=== PATIENT | male | born 1960 | race Caucasian/White ===

== ENCOUNTER 2016-07-09 12:32 | Emergency (ER) | payer OTHER ==
[~2016-07-09] VITALS: Ht 177.8 cm; Wt 147.4 kg
[~2016-07-09 12:32] MED LIST: 'PARAFON FORTE500 M1 PO; ? ANTIDEPRESSANT; ARICEPT10 M1 PO; ATENOLOL25 MG PO; BRIN10TA PO; CATAFLAM50 MG PO; COPAXONE40 MG/ML SC; CORTISPORIN SUS10 ML OT; CYMBALTA30 MG PO; FLEXERIL10 MG PO; FLOMAX0.4 MG PO; HYDROCODONE BIT1 T11 PO; LODINE400 MG PO; LOVASTATIN10 MG PO; LYRICA50 M1 PO; MEDROL DOSEPAK4 MG PO; NAPROSYN500 MG PO; NEURONTIN300 MG PO; NORCO 5-325 TA1 EACH PO; PREDNISONE10 MG PO; PREDNISONE20 MG PO; PRILOSEC20 MG PO; RAPAFLO4 MG; REGLAN5 MG PO; TAMSULOSIN HCL0.4 MG PO; TENORMIN25 MG; TESTOSTERO200 MG/10 IM; TESTOSTERONE1 POW; TRAMADOL HCL50 MG PO; TRAMADOL50 MG PO; TRINTELLIX20 MG PO; VIIBRYD40 PO; VIT D2 PO; VITAMIN E1000 UNI1 PO; ZOFRAN4 MG PO; ZYRTEC10 M2 PO; [UNRECOGNIZED DRUG - OTHER] PO
[2016-07-09] MEDS ORDERED: LOVASTATIN40 MG PO (12:47)
[2016-07-09] MEDS ORDERED: VITAMIN E-SYNT400 IU PO (12:49)
[2016-07-09] MEDS ORDERED: OMEPRAZOLE40 MG PO (12:49)
[2016-07-09] MEDS ORDERED: NATURE'S BLEN5000 IU PO (12:50)
[2016-07-09 13:24] LABS: BASO % 0.3 % (0.0-1.0); EOS % 0.5 % (1.0-4.0); HEMATOCRIT 46.1 % (42.0-52.0); HEMOGLOBIN 15.9 g/dl (14.0-18.0); LYMPH # 1.1 10*3/uL (1.3-4.4); LYMPH % 16.8 % (27.0-41.0); MEAN CELL VOLUME 90.9 fl (80.0-94.0); MEAN CORPUSCULAR HGB 31.4 pg (27.0-31.0); MEAN CORPUSCULAR HGB CONC 34.5 g/dl (33.0-37.0); MEAN PLATELET VOLUME 10.8 fl (9.6-12.3); MONO # 0.5 10*3/uL (0.1-1.0); MONO % 8.1 % (3.0-9.0); NEUT # 4.7 10*3/uL (2.3-7.9); PLATELET COUNT AUTOMATED 157 10*3/uL (130-400); RED BLOOD COUNT 5.07 10*6/uL (4.50-5.90); RED CELL DISTRI WIDTH 12.7 % (0-14.5); WHITE BLOOD COUNT 6.3 10*3/uL (4.8-10.8)
[2016-07-09 13:37] LABS: BUN 15 mg/dl (7-24); CARBON DIOXIDE 25 mmol/L (21-32); CHLORIDE 108 mmol/L (98-107); EST GLOM FILT AFRICAN AMERICAN > 60 ml/min; GLUCOSE 114 mg/dL (65-99); POTASSIUM 4.1 mmol/L (3.5-5.1); SODIUM 142 mmol/L (136-145)
[2016-07-09] MEDS ORDERED: VERTICALM25 MG PO (16:11)
== END 2016-07-09 16:20 | disposition home or self-care (01) ==
LOC: ED 12:32
PROVIDERS: Emergency Medicine
DX: R42 Dizziness and giddiness (principal); Z90.49 Acquired absence of other specified parts of digestive tract; Z88.8 Allergy status to other drugs, medicaments and biological substances; Z79.899 Other long term (current) drug therapy

== ENCOUNTER → 2016-07-30 | Outpatient (CLI) | payer OTHER ==
[~2016-07-30] MED LIST changes: +LOVASTATIN40 MG PO; +NATURE'S BLEN5000 IU PO; +OMEPRAZOLE40 MG PO; +VERTICALM25 MG PO; +VITAMIN E-SYNT400 IU PO
[2016-07-30 08:27] LABS: HEMATOCRIT 43.8 % (42.0-52.0); HEMOGLOBIN 15.1 g/dl (14.0-18.0); MEAN CELL VOLUME 90.5 fl (80.0-94.0); MEAN CORPUSCULAR HGB 31.2 pg (27.0-31.0); MEAN CORPUSCULAR HGB CONC 34.5 g/dl (33.0-37.0); MEAN PLATELET VOLUME 10.7 fl (9.6-12.3); RED BLOOD COUNT 4.84 10*6/uL (4.50-5.90); RED CELL DISTRI WIDTH 12.5 % (0-14.5); WHITE BLOOD COUNT 6.8 10*3/uL (4.8-10.8)
[2016-07-30 08:56] LABS: ALBUMIN 3.5 gm/dl (3.1-4.5); ALKALINE PHOSPHATASE 78 U/L (45-117); BILIRUBIN, TOTAL 0.5 mg/dl (0.2-1.0); BUN 5 mg/dl (7-24); CARBON DIOXIDE 22 mmol/L (21-32); CHLORIDE 106 mmol/L (98-107); CHOLESTEROL 166 mg/dL (<200); EST GLOM FILT AFRICAN AMERICAN > 60 ml/min; GLUCOSE 137 mg/dL (65-99); HDL CHOLESTEROL 51 mg/dl (40-60); LDL CHOLESTEROL 97 mg/dL (9-159); POTASSIUM 3.4 mmol/L (3.5-5.1); SGOT/AST 26 IU/L (3-35); SGPT/ALT 31 U/L (12-78); SODIUM 141 mmol/L (136-145); TOTAL PROTEIN 6.8 gm/dL (6.4-8.2); TRIGLYCERIDES 92 mg/dl (<150); VLDL CHOLESTEROL 18 mg/dL (6-40)
== END | disposition home or self-care (01) ==
LOC: LAB 08:02
PROVIDERS: Internal Medicine Endocrinology, Diabetes & Metabolism
DX: E29.1 Testicular hypofunction (principal); R53.83 Other fatigue

== ENCOUNTER → 2016-11-11 | Outpatient (CLI) | payer OTHER ==
[2016-11-11 08:05] LABS: HEMATOCRIT 46.2 % (42.0-52.0); HEMOGLOBIN 15.4 g/dl (14.0-18.0); MEAN CELL VOLUME 94.9 fl (80.0-94.0); MEAN CORPUSCULAR HGB 31.6 pg (27.0-31.0); MEAN CORPUSCULAR HGB CONC 33.3 g/dl (33.0-37.0); MEAN PLATELET VOLUME 11.2 fl (9.6-12.3); RED BLOOD COUNT 4.87 10*6/uL (4.50-5.90); WHITE BLOOD COUNT 6.3 10*3/uL (4.8-10.8)
[2016-11-11 08:31] LABS: ALBUMIN 3.6 gm/dl (3.1-4.5); ALKALINE PHOSPHATASE 86 U/L (45-117); BILIRUBIN, TOTAL 0.3 mg/dl (0.2-1.0); BUN 15 mg/dl (7-24); CARBON DIOXIDE 29 mmol/L (21-32); CHLORIDE 106 mmol/L (98-107); CHOLESTEROL 188 mg/dL (<200); EST GLOM FILT AFRICAN AMERICAN > 60 ml/min; GLUCOSE 100 mg/dL (65-99); HDL CHOLESTEROL 53 mg/dl (40-60); LDL CHOLESTEROL 104 mg/dL (9-159); POTASSIUM 4.5 mmol/L (3.5-5.1); SGOT/AST 22 IU/L (3-35); SGPT/ALT 23 U/L (12-78); SODIUM 144 mmol/L (136-145); TRIGLYCERIDES 154 mg/dl (<150); VLDL CHOLESTEROL 31 mg/dL (6-40)
== END | disposition home or self-care (01) ==
LOC: LAB 07:36
PROVIDERS: Internal Medicine Endocrinology, Diabetes & Metabolism
DX: R53.83 Other fatigue (principal); E29.1 Testicular hypofunction

== ENCOUNTER 2017-01-05 20:20 | Emergency (ER) | payer OTHER ==
[~2017-01-05] VITALS: Ht 177.8 cm; Wt 135.6 kg
[2017-01-05 20:46] LABS: HEMATOCRIT 46.5 % (42.0-52.0); HEMOGLOBIN 15.6 g/dl (14.0-18.0); MEAN CELL VOLUME 93.4 fl (80.0-94.0); MEAN CORPUSCULAR HGB 31.3 pg (27.0-31.0); MEAN CORPUSCULAR HGB CONC 33.5 g/dl (33.0-37.0); MEAN PLATELET VOLUME 10.7 fl (9.6-12.3); PLATELET COUNT AUTOMATED 151 10*3/uL (130-400); RED BLOOD COUNT 4.98 10*6/uL (4.50-5.90); RED CELL DISTRI WIDTH 12.8 % (0-14.5); WHITE BLOOD COUNT 7.9 10*3/uL (4.8-10.8)
[2017-01-05 20:58] LABS: PROTHROMBIN TIME 10.2 SECONDS (9.0-12.4)
[2017-01-05 21:03] LABS: ALBUMIN 3.9 gm/dl (3.1-4.5); ALKALINE PHOSPHATASE 84 U/L (45-117); BILIRUBIN, TOTAL 0.5 mg/dl (0.2-1.0); BUN 15 mg/dl (7-24); CARBON DIOXIDE 27 mmol/L (21-32); CHLORIDE 106 mmol/L (98-107); EST GLOM FILT AFRICAN AMERICAN > 60 ml/min; GLUCOSE 100 mg/dL (65-99); MAGNESIUM 1.8 mg/dL (1.5-2.1); POTASSIUM 3.9 mmol/L (3.5-5.1); SGOT/AST 20 IU/L (3-35); SGPT/ALT 26 U/L (12-78); SODIUM 143 mmol/L (136-145); TOTAL PROTEIN 7.2 gm/dL (6.4-8.2)
[2017-01-05 21:05] LABS: TROPONIN I < 0.015 ng/ml (<0.045)
[2017-01-05 21:08] LABS: LYMPHOCYTE # 0.9 10*3/uL (1.3-4.4); MONOCYTE # 0.1 10*3/uL (0.1-1.0); NEUTROPHILS 88 % (47-73); PLATELET SUFFICIENCY NORMAL (NORMAL); TOTAL CELLS COUNTED 100 #CELLS
== END 2017-01-05 22:16 | disposition home or self-care (01) ==
LOC: ED 20:20
PROVIDERS: Emergency Medicine
DX: R07.89 Other chest pain (principal); Z90.49 Acquired absence of other specified parts of digestive tract; Z88.8 Allergy status to other drugs, medicaments and biological substances; Z79.899 Other long term (current) drug therapy; G35 Multiple sclerosis

== ENCOUNTER → 2017-04-16 | Outpatient (CLI) | payer OTHER | END | disposition home or self-care (01) | LOC: LAB 12:39 | PROVIDERS: Psychiatry & Neurology Psychiatry | DX: R53.83 Other fatigue (principal); R42 Dizziness and giddiness; R41.81 Age-related cognitive decline; M25.50 Pain in unspecified joint ==

== ENCOUNTER 2017-07-25 12:04 | Emergency (ER) | payer OTHER ==
[~2017-07-25] VITALS: Ht 177.8 cm; Wt 149.7 kg
[2017-07-25 12:56] LABS: BUN 10 mg/dl (7-24); CHLORIDE 105 mmol/L (98-107); CREATININE 0.91 mg/dL (0.70-1.30); POTASSIUM 3.8 mmol/L (3.5-5.1); SODIUM 138 mmol/L (136-145)
== END 2017-07-25 13:08 | disposition home or self-care (01) ==
LOC: ED 12:04
PROVIDERS: Emergency Medicine
DX: G89.4 Chronic pain syndrome (principal); G35 Multiple sclerosis; Z98.890 Other specified postprocedural states; Z79.899 Other long term (current) drug therapy; Z88.8 Allergy status to other drugs, medicaments and biological substances; Z88.6 Allergy status to analgesic agent

== ENCOUNTER → 2017-10-12 | Outpatient (CLI) | payer OTHER ==
--- NOTE | ~2017-10-12 | ST ---
[place], [place] EXERCISE STRESS TEST REPORT NAME: [facility]CCORD [id number] UNIT #: [id number] ROOM: DOCTOR: MIKE CANTU MD BIRTHDATE: [birth year] DOS: 10/12/2017 INDICATIONS: Abnormal electrocardiogram. PROCEDURE: The patient was given a rapid infusion of regadenoson 0.4 mg followed by a saline flush. He had no significant symptoms during the infusion. His heart rate increased normally from 66 to a peak of 113 beats per minute. The blood pressure fell from 126/72-104/70. No diagnostic electrocardiographic changes occurred. Forty seconds after the infusion of regadenoson, he was given radionuclide intravenously. IMPRESSION: 1. Well tolerated infusion of regadenoson. 2. Radionuclide administered. Please see the separate imaging report for further details of the patient's stress test results. MIKE CANTU MD CM:STRESS:EXERCISE STRESS TEST REPORT [id number] MIKE CANTU MD
== END | disposition home or self-care (01) ==
LOC: CARD 01:26
DX: I10 Essential (primary) hypertension (principal); R07.89 Other chest pain; R94.31 Abnormal electrocardiogram [ECG] [EKG]; E78.5 Hyperlipidemia, unspecified; R53.81 Other malaise

== ENCOUNTER → 2017-10-14 | Outpatient (CLI) | payer OTHER ==
[~2017-10-14] MED LIST changes: +FLEET MINERAL133 ML PO; +MIRALAX POWDER255 G1 PO
== END | disposition home or self-care (01) ==
LOC: CARD 00:15
DX: I51.7 Cardiomegaly (principal); R06.02 Shortness of breath; I10 Essential (primary) hypertension

== ENCOUNTER → 2017-10-20 | Outpatient (CLI) | payer OTHER ==
[~2017-10-20] MED LIST changes: -FLEET MINERAL133 ML PO; -MIRALAX POWDER255 G1 PO
== END | disposition home or self-care (01) ==
LOC: RAD 15:49
DX: M76.892 Other specified enthesopathies of left lower limb, excluding foot (principal)

== ENCOUNTER 2017-10-30 21:37 | Emergency (ER) | payer OTHER ==
[~2017-10-30] VITALS: Ht 177.8 cm; Wt 136.1 kg
[2017-10-30 22:58] LABS: BASO % 0.3 % (0.0-1.0); EOS % 0.2 % (1.0-4.0); HEMATOCRIT 43.4 % (42.0-52.0); HEMOGLOBIN 14.7 g/dl (14.0-18.0); LYMPH # 1.4 10*3/uL (1.3-4.4); LYMPH % 13.6 % (27.0-41.0); MEAN CELL VOLUME 93.1 fl (80.0-94.0); MEAN CORPUSCULAR HGB 31.5 pg (27.0-31.0); MEAN CORPUSCULAR HGB CONC 33.9 g/dl (33.0-37.0); MEAN PLATELET VOLUME 10.8 fl (9.6-12.3); MONO # 0.7 10*3/uL (0.1-1.0); MONO % 7.1 % (3.0-9.0); NEUT # 7.8 10*3/uL (2.3-7.9); NEUT % 78.4 % (47.0-73.0); PLATELET COUNT AUTOMATED 140 10*3/uL (130-400); RED BLOOD COUNT 4.66 10*6/uL (4.50-5.90); RED CELL DISTRI WIDTH 14.1 % (0-14.5); WHITE BLOOD COUNT 9.9 10*3/uL (4.8-10.8)
[2017-10-30 23:16] LABS: ALBUMIN 3.4 gm/dl (3.1-4.5); ALKALINE PHOSPHATASE 80 U/L (45-117); BUN 16 mg/dl (7-24); CHLORIDE 110 mmol/L (98-107); CREATININE 0.86 mg/dL (0.70-1.30); LIPASE 164 U/L (73-393); POTASSIUM 3.7 mmol/L (3.5-5.1); SGOT/AST 23 IU/L (3-35); SGPT/ALT 29 U/L (12-78); SODIUM 142 mmol/L (136-145); TOTAL PROTEIN 6.7 gm/dL (6.4-8.2)
[2017-10-30 23:18] LABS: TROPONIN I < 0.015 ng/ml (<0.045)
[2017-10-31] LABS: BILIRUBIN 1+ (NEGATIVE); BLOOD NEGATIVE (NEGATIVE); CLARITY SL CLOUDY (CLEAR); COLOR YELLOW (YELLOW); GLUCOSE NEGATIVE (NEGATIVE); KETONE 2+ (NEGATIVE); LEUKO ESTERASE NEGATIVE (NEGATIVE); NITRITE NEGATIVE (NEGATIVE); SPECIFIC GRAVITY 1.025 (1.005-1.030)
[2017-10-31 00:12] LABS: URINE AMPHETAMINES < 1000 (1000ng/ml); URINE BARBITURATES < 200 (200ng/ml); URINE BENZODIAZEPINES < 200 (200ng/ml); URINE CANNABINOIDS (THC) < 50 (50ng/ml); URINE COCAINE < 300 (300ng/ml); URINE METHADONE < 300 (300ng/ml); URINE OPIATES < 300 (300ng/ml)
[2017-10-31 00:17] LABS: URINE PHENCYCLIDINE < 25 (25ng/ml)
[2017-10-31] MEDS ORDERED: MIRALAX POWDER255 G1 PO (01:14)
[2017-10-31] MEDS ORDERED: FLEET MINERAL133 ML PO (02:48)
== END 2017-10-31 02:00 | disposition home or self-care (01) ==
LOC: ED 21:37
PROVIDERS: Emergency Medicine Emergency Medical Services
DX: E86.0 Dehydration (principal); K59.00 Constipation, unspecified; G89.4 Chronic pain syndrome; M19.90 Unspecified osteoarthritis, unspecified site; Z98.890 Other specified postprocedural states; Z79.899 Other long term (current) drug therapy; Z88.8 Allergy status to other drugs, medicaments and biological substances

== ENCOUNTER → 2017-12-09 | Outpatient (CLI) | payer OTHER ==
[~2017-12-09] MED LIST changes: +FLEET MINERAL133 ML PO; +MIRALAX POWDER255 G1 PO
[2017-12-09 11:17] LABS: BASO # 0.1 10*3/uL (0.0-0.1); BASO % 0.8 % (0.0-1.0); EOS # 0.1 10*3/uL (0.0-0.4); HEMATOCRIT 49.1 % (42.0-52.0); HEMOGLOBIN 16.8 g/dl (14.0-18.0); LYMPH # 1.7 10*3/uL (1.3-4.4); MEAN CELL VOLUME 93.7 fl (80.0-94.0); MEAN CORPUSCULAR HGB 32.1 pg (27.0-31.0); MEAN CORPUSCULAR HGB CONC 34.2 g/dl (33.0-37.0); MEAN PLATELET VOLUME 11.1 fl (9.6-12.3); MONO # 0.5 10*3/uL (0.1-1.0); MONO % 8.5 % (3.0-9.0); NEUT # 3.8 10*3/uL (2.3-7.9); NEUT % 61.4 % (47.0-73.0); PLATELET COUNT AUTOMATED 176 10*3/uL (130-400); RED BLOOD COUNT 5.24 10*6/uL (4.50-5.90); RED CELL DISTRI WIDTH 13.4 % (0-14.5); WHITE BLOOD COUNT 6.2 10*3/uL (4.8-10.8)
[2017-12-09 11:32] LABS: ALBUMIN 3.8 gm/dl (3.1-4.5); ALKALINE PHOSPHATASE 90 U/L (45-117); BUN 19 mg/dl (7-24); CHLORIDE 105 mmol/L (98-107); CREATININE 0.93 mg/dL (0.70-1.30); SGOT/AST 18 IU/L (3-35); SGPT/ALT 28 U/L (12-78); SODIUM 139 mmol/L (136-145); TOTAL PROTEIN 7.5 gm/dL (6.4-8.2)
== END | disposition home or self-care (01) ==
LOC: LAB 10:48 → US 14:30
PROVIDERS: Urology
DX: N39.0 Urinary tract infection, site not specified (principal); R31.9 Hematuria, unspecified; R10.9 Unspecified abdominal pain; N50.811 Right testicular pain

== ENCOUNTER 2018-03-08 10:48 | Emergency (ER) | payer OTHER ==
[~2018-03-08] VITALS: Ht 177.8 cm; Wt 131.5 kg
[2018-03-08] MEDS ORDERED: LIPITOR10 MG PO (10:53)
[2018-03-08 11:10] LABS: BASO % 0.4 % (0.0-1.0); EOS # 0.1 10*3/uL (0.0-0.4); EOS % 1.5 % (1.0-4.0); HEMATOCRIT 47.6 % (42.0-52.0); HEMOGLOBIN 16.6 g/dl (14.0-18.0); LYMPH # 1.4 10*3/uL (1.3-4.4); LYMPH % 18.7 % (27.0-41.0); MEAN CORPUSCULAR HGB CONC 34.9 g/dl (33.0-37.0); MEAN PLATELET VOLUME 10.8 fl (9.6-12.3); MONO # 0.6 10*3/uL (0.1-1.0); MONO % 8.7 % (3.0-9.0); NEUT # 5.2 10*3/uL (2.3-7.9); NEUT % 70.6 % (47.0-73.0); PLATELET COUNT AUTOMATED 148 10*3/uL (130-400); RED BLOOD COUNT 5.35 10*6/uL (4.50-5.90); RED CELL DISTRI WIDTH 12.7 % (0-14.5); WHITE BLOOD COUNT 7.3 10*3/uL (4.8-10.8)
[2018-03-08 11:28] LABS: ALBUMIN 3.8 gm/dl (3.1-4.5); ALKALINE PHOSPHATASE 92 U/L (45-117); BUN 13 mg/dl (7-24); CHLORIDE 109 mmol/L (98-107); POTASSIUM 3.7 mmol/L (3.5-5.1); SGOT/AST 20 IU/L (3-35); SGPT/ALT 30 U/L (12-78); SODIUM 139 mmol/L (136-145); TOTAL PROTEIN 7.8 gm/dL (6.4-8.2)
[2018-03-08] MEDS ORDERED: IMODIUM A-D2 M2 PO (12:40)
== END 2018-03-08 13:20 | disposition home or self-care (01) ==
LOC: ED 10:48
PROVIDERS: Emergency Medicine
DX: K52.9 Noninfective gastroenteritis and colitis, unspecified (principal); E86.0 Dehydration; R42 Dizziness and giddiness; Z88.8 Allergy status to other drugs, medicaments and biological substances; Z79.899 Other long term (current) drug therapy

== ENCOUNTER 2018-03-12 13:48 | Emergency (ER) | payer OTHER ==
[~2018-03-12] VITALS: Ht 180.3 cm; Wt 131.5 kg
[~2018-03-12 13:48] MED LIST changes: +IMODIUM A-D2 M2 PO; +LIPITOR10 MG PO
[2018-03-12 14:26] LABS: HEMATOCRIT 41.2 % (42.0-52.0); HEMOGLOBIN 14.2 g/dl (14.0-18.0); MEAN CELL VOLUME 90.5 fl (80.0-94.0); MEAN CORPUSCULAR HGB 31.2 pg (27.0-31.0); MEAN CORPUSCULAR HGB CONC 34.5 g/dl (33.0-37.0); MEAN PLATELET VOLUME 11.1 fl (9.6-12.3); PLATELET COUNT AUTOMATED 130 10*3/uL (130-400); RED BLOOD COUNT 4.55 10*6/uL (4.50-5.90); WHITE BLOOD COUNT 4.4 10*3/uL (4.8-10.8)
[2018-03-12 14:40] LABS: ALBUMIN 3.4 gm/dl (3.1-4.5); ALKALINE PHOSPHATASE 85 U/L (45-117); BUN 9 mg/dl (7-24); CHLORIDE 108 mmol/L (98-107); POTASSIUM 3.7 mmol/L (3.5-5.1); SGOT/AST 28 IU/L (3-35); SGPT/ALT 33 U/L (12-78); SODIUM 141 mmol/L (136-145); TOTAL PROTEIN 6.9 gm/dL (6.4-8.2)
[2018-03-12 14:42] LABS: BILIRUBIN NEGATIVE (NEGATIVE); BLOOD NEGATIVE (NEGATIVE); CLARITY CLEAR (CLEAR); COLOR YELLOW (YELLOW); GLUCOSE NEGATIVE (NEGATIVE); KETONE NEGATIVE (NEGATIVE); LEUKO ESTERASE TRACE (NEGATIVE); NITRITE NEGATIVE (NEGATIVE); PH 5.5 (5.0-9.0); SPECIFIC GRAVITY >= 1.030 (1.005-1.030); UROBILINOGEN 0.2 E.U./dl (0.2-1.0)
[2018-03-12 14:49] LABS: BACTERIA 1+; EPITHELIAL CELLS 0-2; MUCOUS TRACE; RBC 0-2 rbc/hpf (0-2)
[2018-03-12 14:50] LABS: ATYPICAL LYMPHS 1 % (0-0); BASOPHILS 2 % (0-1); TOTAL CELLS COUNTED 100 #CELLS
[2018-03-12 14:51] LABS: PLATELET SUFFICIENCY LOW (NORMAL)
[2018-03-12] MEDS ORDERED: SEPTDS PO (16:50)
[2018-03-12] MEDS ORDERED: PYRIDIUM200 M1 PO (16:50)
[2018-03-12] MEDS ORDERED: ZOFRAN4 MG PO (16:50)
== END 2018-03-12 17:02 | disposition home or self-care (01) ==
LOC: ED 13:48
PROVIDERS: Nurse Practitioner Family
DX: N39.0 Urinary tract infection, site not specified (principal); R03.0 Elevated blood-pressure reading, without diagnosis of hypertension; G89.29 Other chronic pain; Z88.8 Allergy status to other drugs, medicaments and biological substances; Z79.899 Other long term (current) drug therapy; Z90.49 Acquired absence of other specified parts of digestive tract

== ENCOUNTER 2018-03-25 15:21 | Emergency (ER) | payer OTHER ==
[~2018-03-25] VITALS: Ht 177.8 cm; Wt 113.4 kg
[~2018-03-25 15:21] MED LIST changes: +PYRIDIUM200 M1 PO; +SEPTDS PO
[2018-03-25 15:42] LABS: BILIRUBIN 1+ (NEGATIVE); BLOOD NEGATIVE (NEGATIVE); CLARITY CLEAR (CLEAR); COLOR YELLOW (YELLOW); GLUCOSE NEGATIVE (NEGATIVE); KETONE TRACE (NEGATIVE); LEUKO ESTERASE NEGATIVE (NEGATIVE); NITRITE NEGATIVE (NEGATIVE); PH 5.5 (5.0-9.0); SPECIFIC GRAVITY 1.025 (1.005-1.030)
[2018-03-25 15:53] LABS: BACTERIA 1+; EPITHELIAL CELLS 0-2; MUCOUS 3+; WBC 0-2 wbc/hpf (0-5)
[2018-03-25 16:26] LABS: BASO % 0.9 % (0.0-1.0); EOS % 0.9 % (1.0-4.0); HEMATOCRIT 44.1 % (42.0-52.0); HEMOGLOBIN 14.9 g/dl (14.0-18.0); LYMPH # 1.5 10*3/uL (1.3-4.4); LYMPH % 32.4 % (27.0-41.0); MEAN CELL VOLUME 92.5 fl (80.0-94.0); MEAN CORPUSCULAR HGB 31.2 pg (27.0-31.0); MEAN CORPUSCULAR HGB CONC 33.8 g/dl (33.0-37.0); MEAN PLATELET VOLUME 10.6 fl (9.6-12.3); MONO # 0.4 10*3/uL (0.1-1.0); MONO % 9.4 % (3.0-9.0); NEUT # 2.6 10*3/uL (2.3-7.9); NEUT % 56.2 % (47.0-73.0); PLATELET COUNT AUTOMATED 161 10*3/uL (130-400); RED BLOOD COUNT 4.77 10*6/uL (4.50-5.90); RED CELL DISTRI WIDTH 13.9 % (0-14.5); WHITE BLOOD COUNT 4.7 10*3/uL (4.8-10.8)
[2018-03-25 16:40] LABS: ALBUMIN 3.4 gm/dl (3.1-4.5); ALKALINE PHOSPHATASE 87 U/L (45-117); BUN 10 mg/dl (7-24); CHLORIDE 110 mmol/L (98-107); CREATININE 0.94 mg/dL (0.70-1.30); LIPASE 235 U/L (73-393); POTASSIUM 3.8 mmol/L (3.5-5.1); SGOT/AST 21 IU/L (3-35); SGPT/ALT 30 U/L (12-78); SODIUM 143 mmol/L (136-145)
[2018-03-25] MEDS ORDERED: OMNICEF300 MG PO (16:45)
== END 2018-03-25 16:55 | disposition home or self-care (01) ==
LOC: ED 15:21
PROVIDERS: Physician Assistant
DX: R30.0 Dysuria (principal); M54.5 Low back pain; R10.30 Lower abdominal pain, unspecified; Z88.8 Allergy status to other drugs, medicaments and biological substances; Z79.899 Other long term (current) drug therapy

== ENCOUNTER → 2018-04-22 | Outpatient (CLI) | payer OTHER ==
[~2018-04-22] MED LIST changes: +OMNICEF300 MG PO
== END | disposition home or self-care (01) ==
LOC: LAB 11:42
DX: D40.0 Neoplasm of uncertain behavior of prostate (principal)

== ENCOUNTER → 2018-06-03 | Outpatient (CLI) | payer OTHER ==
[2018-06-03 15:00] LABS: BASO % 0.7 % (0.0-1.0); EOS % 0.5 % (1.0-4.0); HEMATOCRIT 49.9 % (42.0-52.0); HEMOGLOBIN 17.2 g/dl (14.0-18.0); LYMPH # 1.6 10*3/uL (1.3-4.4); LYMPH % 27.1 % (27.0-41.0); MEAN CELL VOLUME 93.4 fl (80.0-94.0); MEAN CORPUSCULAR HGB 32.2 pg (27.0-31.0); MEAN CORPUSCULAR HGB CONC 34.5 g/dl (33.0-37.0); MEAN PLATELET VOLUME 10.4 fl (9.6-12.3); MONO # 0.7 10*3/uL (0.1-1.0); MONO % 12.3 % (3.0-9.0); NEUT # 3.6 10*3/uL (2.3-7.9); NEUT % 59.1 % (47.0-73.0); PLATELET COUNT AUTOMATED 172 10*3/uL (130-400); RED BLOOD COUNT 5.34 10*6/uL (4.50-5.90); RED CELL DISTRI WIDTH 12.8 % (0-14.5)
[2018-06-03 15:28] LABS: ALBUMIN 3.6 gm/dl (3.1-4.5); BILIRUBIN, DIRECT 0.1 mg/dL (0.0-0.2); TOTAL PROTEIN 7.3 gm/dL (6.4-8.2)
== END | disposition home or self-care (01) ==
LOC: LAB 14:40
PROVIDERS: Physician Assistant
DX: G35 Multiple sclerosis (principal)

== ENCOUNTER 2018-06-25 12:26 | Emergency (ER) | payer OTHER ==
[~2018-06-25] VITALS: Ht 177.8 cm; Wt 81.6 kg
[2018-06-25 14:35] LABS: BASO % 0.6 % (0.0-1.0); EOS % 0.2 % (1.0-4.0); HEMATOCRIT 46.7 % (42.0-52.0); HEMOGLOBIN 16.2 g/dl (14.0-18.0); LYMPH # 1.2 10*3/uL (1.3-4.4); LYMPH % 22.5 % (27.0-41.0); MEAN CELL VOLUME 92.3 fl (80.0-94.0); MEAN CORPUSCULAR HGB CONC 34.7 g/dl (33.0-37.0); MEAN PLATELET VOLUME 10.4 fl (9.6-12.3); MONO # 0.6 10*3/uL (0.1-1.0); MONO % 10.9 % (3.0-9.0); NEUT # 3.6 10*3/uL (2.3-7.9); NEUT % 65.4 % (47.0-73.0); PLATELET COUNT AUTOMATED 139 10*3/uL (130-400); RED BLOOD COUNT 5.06 10*6/uL (4.50-5.90); RED CELL DISTRI WIDTH 12.4 % (0-14.5); WHITE BLOOD COUNT 5.4 10*3/uL (4.8-10.8)
[2018-06-25 14:55] LABS: ALBUMIN 3.2 gm/dl (3.1-4.5); ALKALINE PHOSPHATASE 69 U/L (45-117); BUN 7 mg/dl (7-24); CHLORIDE 110 mmol/L (98-107); CREATININE 0.84 mg/dL (0.70-1.30); POTASSIUM 3.5 mmol/L (3.5-5.1); SGOT/AST 22 IU/L (3-35); SGPT/ALT 27 U/L (12-78); SODIUM 145 mmol/L (136-145); TOTAL PROTEIN 6.5 gm/dL (6.4-8.2)
== END 2018-06-26 09:07 | disposition short-term general hospital (02) ==
LOC: ED 12:26
PROVIDERS: Internal Medicine
DX: G35 Multiple sclerosis (principal); G89.29 Other chronic pain; M79.641 Pain in right hand; M54.5 Low back pain; Z88.8 Allergy status to other drugs, medicaments and biological substances; Z79.2 Long term (current) use of antibiotics; Z79.899 Other long term (current) drug therapy; W18.39XA Other fall on same level, initial encounter; Y93.89 Activity, other specified; Y92.89 Other specified places as the place of occurrence of the external cause; Y99.8 Other external cause status

== ENCOUNTER → 2018-07-21 | Outpatient (CLI) | payer OTHER ==
[~2018-07-21] MED LIST changes: +MIRALAX POWDER17 G1 PO
[2018-07-21 09:39] LABS: BASO % 0.7 % (0.0-1.0); EOS # 0.1 10*3/uL (0.0-0.4); EOS % 1.2 % (1.0-4.0); HEMATOCRIT 49.5 % (42.0-52.0); HEMOGLOBIN 16.9 g/dl (14.0-18.0); LYMPH # 1.4 10*3/uL (1.3-4.4); LYMPH % 25.3 % (27.0-41.0); MEAN CELL VOLUME 93.9 fl (80.0-94.0); MEAN CORPUSCULAR HGB 32.1 pg (27.0-31.0); MEAN CORPUSCULAR HGB CONC 34.1 g/dl (33.0-37.0); MEAN PLATELET VOLUME 10.8 fl (9.6-12.3); MONO # 0.6 10*3/uL (0.1-1.0); MONO % 10.6 % (3.0-9.0); NEUT # 3.5 10*3/uL (2.3-7.9); NEUT % 61.7 % (47.0-73.0); PLATELET COUNT AUTOMATED 175 10*3/uL (130-400); RED BLOOD COUNT 5.27 10*6/uL (4.50-5.90); RED CELL DISTRI WIDTH 13.2 % (0-14.5); WHITE BLOOD COUNT 5.7 10*3/uL (4.8-10.8)
[2018-07-21 09:57] LABS: CHLORIDE 105 mmol/L (98-107); POTASSIUM 3.7 mmol/L (3.5-5.1); SODIUM 139 mmol/L (136-145)
[2018-07-21 10:09] LABS: ALBUMIN 3.2 gm/dl (3.1-4.5); ALKALINE PHOSPHATASE 70 U/L (45-117); BUN 9 mg/dl (7-24); CREATININE 0.93 mg/dL (0.70-1.30); SGOT/AST 23 IU/L (3-35); SGPT/ALT 41 U/L (12-78); TOTAL PROTEIN 6.6 gm/dL (6.4-8.2)
== END | disposition home or self-care (01) ==
LOC: LAB 08:48
PROVIDERS: Urology
DX: G35 Multiple sclerosis (principal); E29.1 Testicular hypofunction; R53.83 Other fatigue

== ENCOUNTER 2018-12-18 12:40 | Emergency (ER) | payer MEDICARE ==
[~2018-12-18] VITALS: Ht 177.8 cm; Wt 122.5 kg
[~2018-12-18 12:40] MED LIST changes: +AMITRIPTYLINE25 MG PO; +CARAFATE1 G1 PO; +FAMOTIDINE20 M1 PO; -NATURE'S BLEN5000 IU PO; +TESTONE CI200 MG/1 M IM; +VITAMIN D34000 UNIT PO; +ZANTAC 150150 MG PO
[2018-12-18 13:11] LABS: BASO % 0.7 % (0.0-1.0); EOS % 0.7 % (1.0-4.0); HEMATOCRIT 46.6 % (42.0-52.0); HEMOGLOBIN 16.2 g/dl (14.0-18.0); LYMPH # 1.3 10*3/uL (1.3-4.4); LYMPH % 29.6 % (27.0-41.0); MEAN CELL VOLUME 93.6 fl (80.0-94.0); MEAN CORPUSCULAR HGB 32.5 pg (27.0-31.0); MEAN CORPUSCULAR HGB CONC 34.8 g/dl (33.0-37.0); MEAN PLATELET VOLUME 10.4 fl (9.6-12.3); MONO # 0.4 10*3/uL (0.1-1.0); MONO % 9.7 % (3.0-9.0); NEUT # 2.7 10*3/uL (2.3-7.9); NEUT % 59.1 % (47.0-73.0); PLATELET COUNT AUTOMATED 143 10*3/uL (130-400); RED BLOOD COUNT 4.98 10*6/uL (4.50-5.90); WHITE BLOOD COUNT 4.5 10*3/uL (4.8-10.8)
[2018-12-18 13:19] LABS: BILIRUBIN NEGATIVE (NEGATIVE); BLOOD NEGATIVE (NEGATIVE); CLARITY SL CLOUDY (CLEAR); COLOR YELLOW (YELLOW); GLUCOSE NEGATIVE (NEGATIVE); KETONE NEGATIVE (NEGATIVE); LEUKO ESTERASE NEGATIVE (NEGATIVE); NITRITE NEGATIVE (NEGATIVE); UROBILINOGEN 0.2 E.U./dl (0.2-1.0)
[2018-12-18 13:48] LABS: ALBUMIN 3.7 gm/dl (3.1-4.5); ALKALINE PHOSPHATASE 72 U/L (45-117); BUN 13 mg/dl (7-24); CHLORIDE 110 mmol/L (98-107); CREATININE 1.01 mg/dL (0.70-1.30); LIPASE 131 U/L (73-393); SGOT/AST 18 IU/L (3-35); SGPT/ALT 28 U/L (12-78); SODIUM 145 mmol/L (136-145); TOTAL PROTEIN 6.8 gm/dL (6.4-8.2)
[2018-12-18 13:49] LABS: BACTERIA 1+
[2018-12-18 13:50] LABS: MUCOUS 2+; WBC 0-2 wbc/hpf (0-5)
== END 2018-12-18 17:43 ==
LOC: ED 12:40
PROVIDERS: Nurse Practitioner Family
DX: K21.9 Gastro-esophageal reflux disease without esophagitis (principal); I10 Essential (primary) hypertension; E78.5 Hyperlipidemia, unspecified; I42.9 Cardiomyopathy, unspecified; M79.7 Fibromyalgia; Z88.8 Allergy status to other drugs, medicaments and biological substances; Z79.899 Other long term (current) drug therapy; Z90.49 Acquired absence of other specified parts of digestive tract

== ENCOUNTER 2018-12-22 17:27 | Inpatient (IN) | payer MEDICARE, MEDICAID ==
[~2018-12-22] VITALS: Ht 177.8 cm; Wt 123.9 kg
--- NOTE | ~2018-12-22 | EKG ---
[place], [place] ELECTROCARDIOGRAM REPORT NAME: CATHY MCCORD UNIT #: [id number] ROOM: 506 DOCTOR: AILYN DRAFT REPORT BIRTHDATE: [birth year] [facility] Test Date: 2018-12-22 Test Time: 23:46:10 Pat Name: CATHY MCCORD Department: Room: 506 Gender: M Supervisor Specialty Plant: SS RESP : 1960 Requested By: ANAND HAYNES Order Number: [id number] Reading MD: Ladi Curry Measurements Intervals [place] Rate: 66 P: VA: QRS: 34 QRSD: 104 T: 21 QT: 397 QTc: 416 Interpretive Statements Sinus rhythm Lateral infarct, acute Minimal ST elevation, inferior leads Baseline wander in lead(s) V1,V2 Compared to ECG 11/30/2018 18:50:16 Sinus rhythm no longer present Right ventricular hypertrophy no longer present Myocardial infarct finding still present ST (T wave) deviation still present Electronically Signed On 12-23-2018 4:35:53 PDT by Ladi Curry CM:EKGRPT:ELECTROCARDIOGRAM REPORT [id number] ANAND ROBERTSON DRAFT REPORT ANAND HAYNES MD
--- NOTE | ~2018-12-22 | CON ---
[place], [place] REPORT OF CONSULTATION NAME: CATHY MCCORD UNIT #: [id number] ROOM: 506 DOCTOR: AILYN RAMIREZ MD BIRTHDATE: [birth year] DOS: 12/23/2018 CARDIOLOGY CONSULTATION REASON FOR CONSULTATION: Chest pain, tachycardia. This note is an addendum to note done by Dr. Kt Rhodes. I personally examined the patient and did an independent examination. Medications, allergies and history reviewed. I did a thorough evaluation of the patient and came up with treatment plan. Dr. Rhodes' examination as well as recommendations reflects my work. The patient came with atypical chest pain and he noted to have a sinus tachycardia while he is sitting up in the bed. Denies any palpitation or dizziness. No syncope. He had history of dyslipidemia and obstructive sleep apnea and fibromyalgia. PHYSICAL EXAMINATION CARDIAC: Regular rhythm, no S3, no palpable thrills. ABDOMEN: Benign, nontender. LUNGS: Clear to auscultation. EXTREMITIES: Showed trace edema. REVIEW OF THE DIAGNOSTIC TESTS: EKG showed normal sinus, no acute ST-T changes. Stress test 10/2017 unremarkable. Recent echo reviewed. IMPRESSION: 1. Chest pain, atypical, acute infarct ruled out. 2. Sinus tachycardia on activity possibly due to dehydration. 3. Mild hypotension. 4. Dyslipidemia. 5. Non-morbid obesity. 6. Obstructive sleep apnea. 7. Fibromyalgia. RECOMMENDATIONS: 1. Start normal saline at 70 mL an hour and monitor heart rate and blood pressures. 2. Check orthostatic blood pressures. 3. If the patient has persistent tachycardia, I would consider low-dose beta blockers if his blood pressure tolerates. No family at bedside at the time of examination. No further cardiac testing required at this time since his chest pain appears to be atypical and he had a normal stress test about a year ago. [place], [place] REPORT OF CONSULTATION NAME: CATHY MCCORD UNIT #: [id number] ROOM: 506 DOCTOR: AILYN RAMIREZ MD BIRTHDATE: [birth year] AILYN RAMIREZ MD CM:CONSTR:REPORT OF CONSULTATION 1642 12/24/18 0423 interface
--- NOTE | ~2018-12-22 | EKG ---
[place], [place] ELECTROCARDIOGRAM REPORT NAME: CATHY MCCORD UNIT #: [id number] ROOM: 506 DOCTOR: AILYN DRAFT REPORT BIRTHDATE: [birth year] [facility] Test Date: 2018-12-22 Test Time: 19:40:50 Pat Name: CATHY MCCORD Department: Room: 506 Gender: M Federal Mediator: SS RESP : 1960 Requested By: ANAND HAYNES Order Number: [id number] Reading MD: Ladi Curry Measurements Intervals [place] Rate: 91 P: 42 CT: 200 QRS: 29 QRSD: 100 T: 13 QT: 349 QTc: 430 Interpretive Statements Sinus rhythm Borderline prolonged CT interval Probable left atrial enlargement RSR' in V1 or V2, right VCD or RVH Borderline ST elevation, lateral leads Baseline wander in lead(s) V5 Compared to ECG 11/30/2018 18:50:16 Myocardial infarct finding no longer present ST (T wave) deviation still present Electronically Signed On 12-23-2018 4:35:34 PDT by Ladi Curry CM:EKGRPT:ELECTROCARDIOGRAM REPORT [id number] ANAND ROBERTSON DRAFT REPORT ANAND HAYNES MD
--- NOTE | ~2018-12-22 | EKG ---
[place], [place] ELECTROCARDIOGRAM REPORT NAME: CATHY MCCORD UNIT #: [id number] ROOM: 506 DOCTOR: AILYN DRAFT REPORT BIRTHDATE: [birth year] [facility] Test Date: 2018-12-22 Test Time: 17:32:13 Pat Name: CATHY MCCORD Department: Room: 506 Gender: M Media Consultant Outside Sales: : 1960 Requested By: ANAND HAYNES Order Number: [id number] Reading MD: Ladi Curry Measurements Intervals [place] Rate: 116 P: 26 DE: 179 QRS: 37 QRSD: 92 T: 11 QT: 343 QTc: 477 Interpretive Statements Sinus tachycardia Probable left atrial enlargement RSR' in V1 or V2, right VCD or RVH Borderline prolonged QT interval Baseline wander in lead(s) V2 Compared to ECG 11/30/2018 18:50:16 Sinus rhythm no longer present ST (T wave) deviation no longer present Myocardial infarct finding no longer present Electronically Signed On 12-23-2018 4:35:26 PDT by Ladi Curry CM:EKGRPT:ELECTROCARDIOGRAM REPORT [id number] ANAND ROBERTSON DRAFT REPORT ANAND HAYNES MD
--- NOTE | ~2018-12-22 | PR ---
[place], [place] PROGRESS NOTE NAME: CATHY MCCORD UNIT #: [id number] ROOM: 506 DOCTOR: AILYN RAMIREZ MD BIRTHDATE: [birth year] DOS: 12/24/2018 CARDIOLOGY FOLLOWUP VISIT NOTE REASON FOR VISIT: Sinus tachycardia, hypotension. SUBJECTIVE: The patient is feeling better, still complaining of some dizziness. No palpitation, no PND, no orthopnea. No nausea, vomiting, diarrhea. REVIEW OF SYSTEMS: Review of the 8 systems negative except as mentioned above. RHYTHM STRIPS: The patient in sinus rhythm. OBJECTIVE: VITAL SIGNS: Blood pressure 120/60, pulse 71, respiratory rate 20. GENERAL: Alert, comfortable, in no acute distress. HEAD AND NECK: No distended neck veins. No carotid bruit. CHEST: Nontender. LUNGS: Clear to auscultation bilaterally. HEART: Regular rhythm, no S3. ABDOMEN: Benign, nontender, obese. EXTREMITIES: Showed no edema. Distal pulses palpable. SKIN: Warm and dry. NEUROLOGIC: No cyanosis. No clubbing. RECTAL: Deferred. IMPRESSION: 1. Chest pain, atypical, acute infarct ruled out. The patient had nonischemic stress test in 10/2017. 2. Sinus tachycardia, possibly due to hypotension, currently better. 3. Mild hypotension with the possible orthostasis. Continue IV fluids. 4. Obstructive sleep apnea. 5. Dyslipidemia. RECOMMENDATIONS: 1. Continue IV fluids and if the patient is still orthostatic tomorrow, continue IV fluids for 24 hours more. By Thursday, if the patient is still orthostatic, I would recommend adding midodrine. 2. No family at bedside. [place], [place] PROGRESS NOTE NAME: CATHY MCCORD UNIT #: [id number] ROOM: 506 DOCTOR: AILYN RAMIREZ MD BIRTHDATE: [birth year] AILYN RAMIREZ MD CM:PNTRANS [id number] AILYN RAMIREZ MD 12/25/18 0551 interface
[2018-12-22 17:29] VITALS: BP 145/101
[2018-12-22 17:39] VITALS: BP 104/72
[2018-12-22 17:59] LABS: BASO % 0.6 % (0.0-1.0); EOS # 0.1 10*3/uL (0.0-0.4); HEMATOCRIT 44.4 % (42.0-52.0); HEMOGLOBIN 15.6 g/dl (14.0-18.0); LYMPH # 1.5 10*3/uL (1.3-4.4); LYMPH % 29.7 % (27.0-41.0); MEAN CELL VOLUME 92.9 fl (80.0-94.0); MEAN CORPUSCULAR HGB 32.6 pg (27.0-31.0); MEAN CORPUSCULAR HGB CONC 35.1 g/dl (33.0-37.0); MEAN PLATELET VOLUME 10.6 fl (9.6-12.3); MONO # 0.5 10*3/uL (0.1-1.0); MONO % 9.1 % (3.0-9.0); NEUT # 3.1 10*3/uL (2.3-7.9); NEUT % 59.4 % (47.0-73.0); PLATELET COUNT AUTOMATED 154 10*3/uL (130-400); RED BLOOD COUNT 4.78 10*6/uL (4.50-5.90); WHITE BLOOD COUNT 5.2 10*3/uL (4.8-10.8)
[2018-12-22 18:07] VITALS: BP 100/70
[2018-12-22 18:10] LABS: ACT PARTIAL THROMBO TIME 25.5 SECONDS (20.0-32.1); INTERNATIONAL NORM RATIO 0.9 (2.0-3.5)
[2018-12-22 18:15] LABS: ALBUMIN 3.7 gm/dl (3.1-4.5); ALKALINE PHOSPHATASE 77 U/L (45-117); BUN 17 mg/dl (7-24); CHLORIDE 109 mmol/L (98-107); CREATININE 1.05 mg/dL (0.70-1.30); POTASSIUM 3.8 mmol/L (3.5-5.1); SGOT/AST 13 IU/L (3-35); SGPT/ALT 24 U/L (12-78); SODIUM 142 mmol/L (136-145)
[2018-12-22 18:16] LABS: TROPONIN I < 0.015 ng/ml (<0.045)
[2018-12-22 18:36] VITALS: BP 111/78
--- NOTE | 2018-12-22 19:09 | NUR ---
NURSE TO NURSE REPORT GIVEN TO THIS RN.PT AWAITING ROOM ASSIGNMENT AND TRANSFER TO FLOOR UNIT.
--- NOTE | 2018-12-22 19:13 | NUR ---
PT DENIES ANY PAIN AT THIS TIME.PT MEDICATED PER EMAR WITH 324MG ASA PO.
--- NOTE | 2018-12-22 19:14 | NUR ---
PT DENIES ANY WOUNDS.
[2018-12-22 19:15] VITALS: BP 107/76
--- NOTE | 2018-12-22 19:40 | NUR ---
THIS RN CALLED TO NOTIFY RN PT COMING TO FLOOR.RESIDENT AT BEDSIDE AT THIS TIME, REQUEST FEW MINUTES BEFORE TRANSPORT.
--- NOTE | 2018-12-22 19:57 | NUR ---
A 58, admitted to , under the services of SHRUTHI Cochran DO with a diagnosis of CHEST PAIN. Chief complaint is CHEST PAIN. Patient arrived via stretcher from ER. Monitor applied. Initial assessment completed. Vital signs taken and recorded. SHRUTHI COCHRAN DO notified of admission to the unit. Orders received. See assessment for past medical history, medications and allergies. Patient and/or family oriented to unit. [facility] visitation policy reviewed. Clothing/patient valuable form completed. MOISES BARRIENTOS
[2018-12-22 20:00] VITALS: BP 113/53
[2018-12-22] MEDS ORDERED: GLUCOSAMINE DA1 EACH PO (20:22)
[2018-12-22] MEDS ORDERED: DOC-Q-LACE100 MG PO (20:25)
[2018-12-22] MEDS ORDERED: ZANTAC 150150 MG PO (20:27)
--- NOTE | 2018-12-22 20:29 | NUR ---
MED REC COMPLETED WITH LIST FROM HOME
--- NOTE | 2018-12-22 20:30 | NUR ---
DR NICOLE AWARE THE MED REC IS COMPLETE
--- NOTE | 2018-12-22 23:56 | NUR ---
DR NICOLE REVIEWED RECENT EKG. NSR
[2018-12-23] VITALS: BP 98/63
[2018-12-23 01:03] LABS: BILIRUBIN NEGATIVE (NEGATIVE); BLOOD NEGATIVE (NEGATIVE); CLARITY CLEAR (CLEAR); COLOR YELLOW (YELLOW); GLUCOSE NEGATIVE (NEGATIVE); KETONE NEGATIVE (NEGATIVE); LEUKO ESTERASE NEGATIVE (NEGATIVE); NITRITE NEGATIVE (NEGATIVE); SPECIFIC GRAVITY <= 1.005 (1.005-1.030); UROBILINOGEN 0.2 E.U./dl (0.2-1.0)
[2018-12-23 01:16] LABS: EPITHELIAL CELLS 0-5
--- NOTE | 2018-12-23 07:00 | NUR ---
ARRIVED TO FLOOR, INTRODUCED TO PATIENT, BEDSIDE REPORT RECIEVED, WHITE BOARD UPDATED.
[2018-12-23 07:09] LABS: BASO % 0.5 % (0.0-1.0); EOS # 0.1 10*3/uL (0.0-0.4); EOS % 1.3 % (1.0-4.0); HEMATOCRIT 43.6 % (42.0-52.0); HEMOGLOBIN 14.8 g/dl (14.0-18.0); LYMPH # 2.1 10*3/uL (1.3-4.4); LYMPH % 38.6 % (27.0-41.0); MEAN CELL VOLUME 95.2 fl (80.0-94.0); MEAN CORPUSCULAR HGB 32.3 pg (27.0-31.0); MEAN CORPUSCULAR HGB CONC 33.9 g/dl (33.0-37.0); MEAN PLATELET VOLUME 10.8 fl (9.6-12.3); MONO # 0.6 10*3/uL (0.1-1.0); MONO % 11.4 % (3.0-9.0); NEUT # 2.7 10*3/uL (2.3-7.9); NEUT % 47.8 % (47.0-73.0); PLATELET COUNT AUTOMATED 136 10*3/uL (130-400); RED BLOOD COUNT 4.58 10*6/uL (4.50-5.90); RED CELL DISTRI WIDTH 12.1 % (0-14.5); WHITE BLOOD COUNT 5.5 10*3/uL (4.8-10.8)
--- NOTE | 2018-12-23 07:15 | NUR ---
ARRIVED ON SHIFT, INTRODUCED TO PATIENT, BEDSIDE REPORT RECIEVED. WHITE BOARD UPDATED.
[2018-12-23 07:36] LABS: BUN 13 mg/dl (7-24); CHLORIDE 108 mmol/L (98-107); POTASSIUM 3.8 mmol/L (3.5-5.1); SODIUM 142 mmol/L (136-145)
[2018-12-23 07:39] LABS: CHOLESTEROL 179 mg/dL (<200); CREATININE 0.94 mg/dL (0.70-1.30); HDL CHOLESTEROL 54 mg/dl (40-60); LDL CHOLESTEROL 109 mg/dL (9-159); PHOSPHOROUS 3.4 mg/dL (2.5-4.9); TRIGLYCERIDES 81 mg/dl (<150); VLDL CHOLESTEROL 16 mg/dL (6-40)
[2018-12-23 10:12] LABS: VITAMIN D, 25-HYDROXY 45.7 ng/mL (30-100)
[2018-12-23 12:00] VITALS: BP 123/79
--- NOTE | 2018-12-23 12:49 | NUR ---
Steam Meter Reader in to talk to patient. Patient states lives at HOME with ALONE. There are NO steps in the home. Physician: DYLAN Pharmacy: [facility] Home health services: NONE BUT [employer]ER IS WORKING ON GETTING HIM HELP AT HOME Patient's level of ADLs: MINIMAL ASSIST Patient has working utilities: YES DME: NONE Follow-up physician's appointment after d/c: WILL BE MADE BY HOSPITALIST NURSE DIRECTOR ON DISCHARGE Does patient want to access PORTAL?: NO Discharge plan PT STATES HE CURRENTY IS LIVING AT [facility] BUT IS MOVING OUT SOON. STATES HIS CLUTCH ASSEMBLER IS WORKING ON GETTING HIM SOME HELP AT HOME, BUT STATES HE CAN DO HIS OWN ADL'S. STATES NO OTHER NEEDS AT HOME. WILL CONTINUE TO FOLLOW. WILL HAVE A RIDE HOME OR HE STATES HE WILL WALK.. ROHIT MORALES
--- NOTE | 2018-12-23 15:03 | NUR ---
CALL PLACED TO DR. TAYLOR, SPOKE WITH RASHAD, REGARDING CONSULT, SHE STATES THAT HE IS AWARE OF CONSULT, ADVISED WITH ANY ACTIVITY PATIENTS HEART RATE GOES >120
[2018-12-23 16:00] VITALS: BP 127/85
--- NOTE | 2018-12-23 19:59 | NUR ---
PATIENT SITTING ON SIDE OF BED WITH NO NEEDS MADE. DENIES PAIN. BED IN LOWEST POSITION, CALL LIGHT IN REACH
[2018-12-23 20:00] VITALS: BP 131/93
[2018-12-24] VITALS: BP 130/88
--- NOTE | 2018-12-24 03:51 | NUR ---
PATIENT RESTING IN BED WITH EYES CLOSED. IV FLUIDS INFUSING WITHOUT DIFFICULTY. BED IN LOWEST POSITOIN, CALL LIGHT IN REACH
--- NOTE | 2018-12-24 06:34 | NUR ---
ORTHOS COMPLETED AT THIS TIME. PATIENT C/O DIZZINESS WHEN STANDING. DR WILSON AWARE
[2018-12-24 08:00] VITALS: BP 122/60
--- NOTE | 2018-12-24 09:36 | NUR ---
MILK OF MAGNESIA GIVEN PER PRN ORDER FOR COMPLAINTS OF CONSTIPATION., PT STATES NO BM FOR A WEEK. WILL MONITOR FOR EFFECTIVENESS.
--- NOTE | 2018-12-24 11:28 | NUR ---
PT STATES HE WILL GO HOME ON DISCHARGE AND WILL HAVE NO NEEDS. WILL CONTINUE TO FOLLOW.
[2018-12-24 12:00] VITALS: BP 106/73
--- NOTE | 2018-12-24 12:04 | NUR ---
CT PREP STARTED AT THIS TIME, PT OTHERWISE NPO.
--- NOTE | 2018-12-24 14:34 | NUR ---
PT OFF FLOOR FOR CT AT THIS TIME.
--- NOTE | 2018-12-24 15:44 | NUR ---
DR GRANT MADE AWARE OF CT ABD/PELVIS RESULTS. STATES PT MAY RESUME DIET.
[2018-12-24 16:00] VITALS: BP 124/80
--- NOTE | 2018-12-24 16:30 | NUR ---
IN TO PROVIDE DULCOLAX, PT STATES HE HAD TWO LARGE BM'S SINCE MILK OF MAGNESIA.
--- NOTE | 2018-12-24 19:30 | NUR ---
TOOK OVER CARE OF PT AT THIS TIME. PT LYING IN BED, EYES OPEN, ALERT ORIENTED AND PLEASANT MOOD. ASSESSMENT COMPLETE. PT C/O BACK PAIN. WILL MEDICATE PT. RESPIRATIONS EASY AND UNLABORED ON ROOM AIR. ALL QUESTIONS ANSWERED APPROPRIATELY. NO OTHER NEEDS VOICED AT THIS TIME. IV FLUIDS RUNNING PER ORDER. IV SITE PATENT, DRESSING C/D/I. WILL CONTINUE TO MONITOR. ALL SAFETY MEASURES IN PLACE. CALL LIGHT IN REACH.
[2018-12-24 20:00] VITALS: BP 98/50
--- NOTE | 2018-12-24 20:32 | NUR ---
PT C/O GENERALIZED PAIN/BACK PAIN. RATES PAIN A "7". NORCO GIVEN AT THIS TIME. WILL MONITOR FOR EFFECTIVENESS. CALL LIGHT IN REACH.
--- NOTE | 2018-12-24 21:32 | NUR ---
MARYAN EFFECTIVE PER PT.
[2018-12-25] VITALS (7 sets, daily range): BP systolic 88–136; BP diastolic 56–94
[2018-12-25 06:13] LABS: BASO % 0.6 % (0.0-1.0); EOS # 0.1 10*3/uL (0.0-0.4); EOS % 1.4 % (1.0-4.0); HEMATOCRIT 41.6 % (42.0-52.0); HEMOGLOBIN 13.9 g/dl (14.0-18.0); LYMPH # 2.1 10*3/uL (1.3-4.4); LYMPH % 40.6 % (27.0-41.0); MEAN CELL VOLUME 96.1 fl (80.0-94.0); MEAN CORPUSCULAR HGB 32.1 pg (27.0-31.0); MEAN CORPUSCULAR HGB CONC 33.4 g/dl (33.0-37.0); MONO # 0.6 10*3/uL (0.1-1.0); MONO % 12.1 % (3.0-9.0); NEUT # 2.3 10*3/uL (2.3-7.9); NEUT % 44.9 % (47.0-73.0); PLATELET COUNT AUTOMATED 130 10*3/uL (130-400); RED BLOOD COUNT 4.33 10*6/uL (4.50-5.90); RED CELL DISTRI WIDTH 12.1 % (0-14.5); WHITE BLOOD COUNT 5.1 10*3/uL (4.8-10.8)
[2018-12-25 06:29] LABS: ALBUMIN 3.3 gm/dl (3.1-4.5); BUN 9 mg/dl (7-24); CHLORIDE 110 mmol/L (98-107); POTASSIUM 4.2 mmol/L (3.5-5.1); SODIUM 145 mmol/L (136-145)
[2018-12-25 06:33] LABS: ALKALINE PHOSPHATASE 59 U/L (45-117); CREATININE 0.91 mg/dL (0.70-1.30); PHOSPHOROUS 3.6 mg/dL (2.5-4.9); SGOT/AST 15 IU/L (3-35); SGPT/ALT 20 U/L (12-78); TOTAL PROTEIN 6.2 gm/dL (6.4-8.2)
[2018-12-26] VITALS: BP 91/47
--- NOTE | 2018-12-26 01:34 | NUR ---
DR. LYNCH NOTIFIED OF BP OF 94/56. NO NEW ORDERS. WILL MONITOR.
[2018-12-26 06:09] LABS: BUN 7 mg/dl (7-24); CHLORIDE 109 mmol/L (98-107); CREATININE 0.83 mg/dL (0.70-1.30); PHOSPHOROUS 3.2 mg/dL (2.5-4.9); POTASSIUM 3.7 mmol/L (3.5-5.1); SODIUM 144 mmol/L (136-145)
[2018-12-26 06:11] LABS: BASO % 0.6 % (0.0-1.0); EOS # 0.1 10*3/uL (0.0-0.4); EOS % 1.3 % (1.0-4.0); HEMATOCRIT 42.3 % (42.0-52.0); LYMPH # 2.1 10*3/uL (1.3-4.4); LYMPH % 39.7 % (27.0-41.0); MEAN CELL VOLUME 95.5 fl (80.0-94.0); MEAN CORPUSCULAR HGB 31.6 pg (27.0-31.0); MEAN CORPUSCULAR HGB CONC 33.1 g/dl (33.0-37.0); MONO # 0.6 10*3/uL (0.1-1.0); MONO % 10.6 % (3.0-9.0); NEUT # 2.5 10*3/uL (2.3-7.9); NEUT % 47.4 % (47.0-73.0); PLATELET COUNT AUTOMATED 131 10*3/uL (130-400); RED BLOOD COUNT 4.43 10*6/uL (4.50-5.90); RED CELL DISTRI WIDTH 12.2 % (0-14.5); WHITE BLOOD COUNT 5.3 10*3/uL (4.8-10.8)
--- NOTE | 2018-12-26 08:37 | NUR ---
24 HR chart check completed.
[2018-12-26 12:00] VITALS: BP 133/80
[2018-12-26 16:00] VITALS: BP 120/84
[2018-12-26 20:00] VITALS: BP 116/75
--- NOTE | 2018-12-26 20:00 | NUR ---
RESTING IN BED; ALERT & ORIENTED. IV FLUIDS INFUSING INTO RIGHT ANTECUBITAL WITHOUT DIFFICULTY; SITE ASYMPTOMATIC. PT. VOICES NO C/O AT THIS TIME. NO DISTRESS NOTED. REINFORCED NPO STATUS AFTER MIDNIGHT FOR STRESS TEST IN AM. PT. VERBALIZED UNDERSTANDING. CALL LIGHT WITHIN REACH.
--- NOTE | 2018-12-26 23:00 | NUR ---
PT ASLEEP IN BED. PT RESPIRATIONS EASY/UNLABORED. DENIES ANY NEEDS AT THIS TIME. PT BED IN LOWEST POSITION AND LOCKED. CALL LIGHT IS IN REACH.
[2018-12-27] VITALS: BP 115/82
[2018-12-27 06:36] LABS: BASO % 0.5 % (0.0-1.0); EOS # 0.1 10*3/uL (0.0-0.4); EOS % 1.4 % (1.0-4.0); HEMATOCRIT 43.7 % (42.0-52.0); HEMOGLOBIN 14.9 g/dl (14.0-18.0); LYMPH # 1.9 10*3/uL (1.3-4.4); LYMPH % 32.1 % (27.0-41.0); MEAN CORPUSCULAR HGB 32.4 pg (27.0-31.0); MEAN CORPUSCULAR HGB CONC 34.1 g/dl (33.0-37.0); MEAN PLATELET VOLUME 10.8 fl (9.6-12.3); MONO # 0.6 10*3/uL (0.1-1.0); MONO % 10.2 % (3.0-9.0); NEUT # 3.2 10*3/uL (2.3-7.9); NEUT % 55.3 % (47.0-73.0); PLATELET COUNT AUTOMATED 144 10*3/uL (130-400); RED CELL DISTRI WIDTH 12.4 % (0-14.5); WHITE BLOOD COUNT 5.8 10*3/uL (4.8-10.8)
[2018-12-27 06:58] LABS: BUN 10 mg/dl (7-24); CHLORIDE 109 mmol/L (98-107); CREATININE 0.98 mg/dL (0.70-1.30); POTASSIUM 4.2 mmol/L (3.5-5.1); SODIUM 143 mmol/L (136-145)
[2018-12-27 08:00] VITALS: BP 118/84
--- NOTE | 2018-12-27 08:00 | NUR ---
IN TO SEE PATIENT AT THIS TIME. NO COMPLAINTS. PT IS SLOW TO RESPOND AND HAS A FLAT AFFECT. NO S/S OF DISTRESS, SOB OR PAIN. BED IN LOWEST LOCKED POSITION AND CALL LIGHT WITHIN REACH. WILL CONTINUE TO MONITOR.
--- NOTE | 2018-12-27 09:45 | NUR ---
PATIENT OFF OF FLOOR FOR STRESS TEST
--- NOTE | 2018-12-27 11:53 | NUR ---
INFORMED SIGNED CONSENT OBTAINED FOR LEXISCAN STRESS TEST WITH DR PRASAD. RESTING EKG NSR HR 72 BP 118/80. PULSE OX 99% LUNGS CLEAR. PT COMPLETED ONE MINUTE OF A LEXISCAN PROTOCOL WITH PT RECEIVING LEXISCAN O.4MG IV OVER 10 SECONDS. NO ARRHYTHMIAS NOTED. INCOMPLETED RBBB SEEN. PT C/O AN ODD FEELING WITH INJECTION. LAST RECOVERY HR OF 128 BP 110/70. PT IN STABLE CONDITION, AWAITING NUCLEAR IMAGES.
[2018-12-27 12:00] VITALS: BP 115/82
--- NOTE | 2018-12-27 14:04 | NUR ---
PT STATES NO NEEDS WHEN DISCHARGED. WILL CONTINUE TO FOLLOW.
--- NOTE | 2018-12-27 16:52 | NUR ---
Discharge instructions reviewed with patient/family. Patient receptive and verbalizes understanding. Follow-up care arranged. Written instructions given to patient/family. QUARTER LINING SMOOTHER ACCOUNTED FOR SHAKILA REES
== END 2018-12-27 16:52 | disposition home or self-care (01) | DRG 205 ==
LOC: ED 17:27 → 5E 19:05 → EDHOLD 19:05 → 5E 19:32
PROVIDERS: Emergency Medicine; Family Medicine; Internal Medicine; ADMIT Internal Medicine
PROC: 3E073KZ Introduction of Other Diagnostic Substance into Coronary Artery, Percutaneous Approach (ICD-10-PCS; principal; 2018-12-27)
PROC: 4A02XM4 Measurement of Cardiac Total Activity, External Approach (ICD-10-PCS; principal; 2018-12-27)
DX: M94.0 Chondrocostal junction syndrome [Tietze] (principal); J18.9 Pneumonia, unspecified organism; R09.1 Pleurisy; K21.9 Gastro-esophageal reflux disease without esophagitis; E78.00 Pure hypercholesterolemia, unspecified; R73.9 Hyperglycemia, unspecified; E87.8 Other disorders of electrolyte and fluid balance, not elsewhere classified; R00.0 Tachycardia, unspecified; N40.0 Benign prostatic hyperplasia without lower urinary tract symptoms; R42 Dizziness and giddiness; G35 Multiple sclerosis; M79.7 Fibromyalgia; I95.1 Orthostatic hypotension; F32.9 Major depressive disorder, single episode, unspecified; E66.9 Obesity, unspecified; D75.89 Other specified diseases of blood and blood-forming organs; G47.33 Obstructive sleep apnea (adult) (pediatric); M25.552 Pain in left hip; R10.30 Lower abdominal pain, unspecified; K59.00 Constipation, unspecified; G89.4 Chronic pain syndrome; E78.5 Hyperlipidemia, unspecified; E83.41 Hypermagnesemia; F41.0 Panic disorder [episodic paroxysmal anxiety]; S29.011A Strain of muscle and tendon of front wall of thorax, initial encounter; X58.XXXA Exposure to other specified factors, initial encounter; Y93.89 Activity, other specified; Y92.89 Other specified places as the place of occurrence of the external cause; Y99.8 Other external cause status; Z88.8 Allergy status to other drugs, medicaments and biological substances; Z87.440 Personal history of urinary (tract) infections; Z79.899 Other long term (current) drug therapy; Z68.39 Body mass index [BMI] 39.0-39.9, adult

== ENCOUNTER 2019-02-15 15:04 | Emergency (ER) | payer MEDICARE, MEDICAID ==
[~2019-02-15] VITALS: Ht 177.8 cm; Wt 127.0 kg
--- NOTE | ~2019-02-15 | EKG ---
[place], [place] ELECTROCARDIOGRAM REPORT NAME: CATHY MCCORD UNIT #: [id number] ROOM: DOCTOR: AILYN DRAFT REPORT BIRTHDATE: [birth year] [facility] Test Date: 2019-02-15 Test Time: 15:30:44 Pat Name: CATHY MCCORD Department: Room: Gender: M Genetic Counselor: Alisson Toscano : 1960 Requested By: LIBERTAD PAYTON Order Number: [id number] Reading MD: Emigdio Randall MD Measurements Intervals [place] Rate: 79 P: 26 VT: 189 QRS: 12 QRSD: 100 T: 8 QT: 364 QTc: 418 Interpretive Statements Sinus rhythm Probable left atrial enlargement Low voltage, precordial leads RSR' in V1 or V2, right VCD or RVH Borderline ST elevation, anterolateral leads Baseline wander in lead(s) V1,V2,V3 Compared to ECG 12/22/2018 23:46:10 Low QRS voltage now present Right ventricular hypertrophy now present RSR' in V1 or V2 now present Myocardial infarct finding no longer present ST (T wave) deviation still present Electronically Signed On 02-21-2019 9:11:18 PDT by Emigdio Randall MD CM:EKGRPT:ELECTROCARDIOGRAM REPORT 1530 0911 LIBERTAD TAFOYA DRAFT REPORT LIBERTAD PAYTON DO
[~2019-02-15 15:04] MED LIST changes: +DOC-Q-LACE100 MG PO; +GLUCOSAMINE DA1 EACH PO
[2019-02-15 16:00] LABS: BASO # 0.1 10*3/uL (0.0-0.1); BASO % 0.8 % (0.0-1.0); EOS % 0.5 % (1.0-4.0); HEMATOCRIT 46.3 % (42.0-52.0); HEMOGLOBIN 15.6 g/dl (14.0-18.0); LYMPH # 1.6 10*3/uL (1.3-4.4); LYMPH % 26.6 % (27.0-41.0); MEAN CELL VOLUME 96.7 fl (80.0-94.0); MEAN CORPUSCULAR HGB 32.6 pg (27.0-31.0); MEAN CORPUSCULAR HGB CONC 33.7 g/dl (33.0-37.0); MEAN PLATELET VOLUME 10.3 fl (9.6-12.3); MONO # 0.7 10*3/uL (0.1-1.0); NEUT # 3.5 10*3/uL (2.3-7.9); NEUT % 59.6 % (47.0-73.0); PLATELET COUNT AUTOMATED 188 10*3/uL (130-400); RED BLOOD COUNT 4.79 10*6/uL (4.50-5.90); RED CELL DISTRI WIDTH 13.7 % (0-14.5); WHITE BLOOD COUNT 5.9 10*3/uL (4.8-10.8)
[2019-02-15 16:16] LABS: ALBUMIN 3.6 gm/dl (3.1-4.5); ALKALINE PHOSPHATASE 92 U/L (45-117); BUN 10 mg/dl (7-24); CHLORIDE 104 mmol/L (98-107); CREATININE 0.86 mg/dL (0.70-1.30); LIPASE 185 U/L (73-393); POTASSIUM 4.1 mmol/L (3.5-5.1); SGOT/AST 19 IU/L (3-35); SGPT/ALT 27 U/L (12-78); SODIUM 138 mmol/L (136-145); TOTAL PROTEIN 6.9 gm/dL (6.4-8.2)
[2019-02-15 16:17] LABS: TROPONIN I < 0.015 ng/ml (<0.045)
[2019-02-15 16:18] LABS: BILIRUBIN NEGATIVE (NEGATIVE); BLOOD NEGATIVE (NEGATIVE); CLARITY CLEAR (CLEAR); COLOR YELLOW (YELLOW); GLUCOSE NEGATIVE (NEGATIVE); KETONE NEGATIVE (NEGATIVE); LEUKO ESTERASE NEGATIVE (NEGATIVE); NITRITE NEGATIVE (NEGATIVE); SPECIFIC GRAVITY 1.015 (1.005-1.030); UROBILINOGEN 0.2 E.U./dl (0.2-1.0)
[2019-02-15 16:33] LABS: ACT PARTIAL THROMBO TIME 25.2 SECONDS (20.0-32.1); INTERNATIONAL NORM RATIO 0.9 (2.0-3.5)
[2019-02-15 16:52] LABS: WBC 0-2 wbc/hpf (0-5)
== END 2019-02-15 21:46 | disposition home or self-care (01) ==
LOC: ED 15:04
PROVIDERS: Emergency Medicine
DX: R10.2 Pelvic and perineal pain (principal); R11.0 Nausea; R19.7 Diarrhea, unspecified; R61 Generalized hyperhidrosis; K62.89 Other specified diseases of anus and rectum; K59.00 Constipation, unspecified; R06.02 Shortness of breath; M79.7 Fibromyalgia; K21.9 Gastro-esophageal reflux disease without esophagitis; E78.00 Pure hypercholesterolemia, unspecified; E66.9 Obesity, unspecified; Z88.8 Allergy status to other drugs, medicaments and biological substances; Z79.899 Other long term (current) drug therapy; Z68.34 Body mass index [BMI] 34.0-34.9, adult

== ENCOUNTER → 2019-03-09 | Outpatient (CLI) | payer MEDICARE ==
[2019-03-09 09:20] LABS: BASO # 0.1 10*3/uL (0.0-0.1); BASO % 0.9 % (0.0-1.0); EOS # 0.1 10*3/uL (0.0-0.4); EOS % 1.5 % (1.0-4.0); HEMATOCRIT 48.8 % (42.0-52.0); HEMOGLOBIN 16.4 g/dl (14.0-18.0); LYMPH # 1.8 10*3/uL (1.3-4.4); LYMPH % 26.3 % (27.0-41.0); MEAN CELL VOLUME 95.7 fl (80.0-94.0); MEAN CORPUSCULAR HGB 32.2 pg (27.0-31.0); MEAN CORPUSCULAR HGB CONC 33.6 g/dl (33.0-37.0); MEAN PLATELET VOLUME 10.3 fl (9.6-12.3); MONO # 0.7 10*3/uL (0.1-1.0); MONO % 10.9 % (3.0-9.0); PLATELET COUNT AUTOMATED 169 10*3/uL (130-400); RED CELL DISTRI WIDTH 13.2 % (0-14.5); WHITE BLOOD COUNT 6.7 10*3/uL (4.8-10.8)
[2019-03-09 09:52] LABS: ALBUMIN 3.6 gm/dl (3.1-4.5); ALKALINE PHOSPHATASE 84 U/L (45-117); BUN 15 mg/dl (7-24); CHLORIDE 105 mmol/L (98-107); CREATININE 0.91 mg/dL (0.70-1.30); SGOT/AST 17 IU/L (3-35); SGPT/ALT 23 U/L (12-78); SODIUM 137 mmol/L (136-145); TOTAL PROTEIN 7.1 gm/dL (6.4-8.2)
== END | disposition home or self-care (01) ==
LOC: LAB 08:48
PROVIDERS: Nurse Practitioner Family
DX: Z12.5 Encounter for screening for malignant neoplasm of prostate (principal); D40.0 Neoplasm of uncertain behavior of prostate; R53.83 Other fatigue

== ENCOUNTER → 2019-03-25 | Day surgery (SDC) | payer MEDICARE ==
[~2019-03-25] VITALS: Ht 177.8 cm; Wt 136.1 kg
--- NOTE | ~2019-03-25 | O ---
[place], [place] OPERATIVE NOTE NAME: CATHY MCCORD UNIT #: [id number] ROOM: DOCTOR: ARCENIO MENG MD BIRTHDATE: [birth year] DOS: GASTROENDOSCOPIC REPORT The patient is a 58-year-old who has presented with chief complaint of history of colonic polyp, dyspepsia taken Protonix, Zantac, Pepcid, and Carafate. PROCEDURE: Today's procedure part of investigation is panendoscopy and colonoscopy. PREMEDICATION: Propofol. SCOPE: Olympus forward-viewing procedure part of investigation is panendoscopy with colonoscopy. PREMEDICATION: Propofol. SCOPE: Olympus forward-viewing gastroscope Q10 video. REPORT: After putting the patient in left lateral position and application of lubricant to the scope, the scope was introduced. Thereafter, under direct visualization, advanced through the length of esophagus without difficulty. Gastric pouch was entered. Gastritis seen. Antral biopsy obtained. Duodenal bulb, second and third were within normal limits. The patient extubated, tolerated the procedure well. IMPRESSION: Gastritis. PLAN AND DISCUSSION: We are going to continue with omeprazole 40 mg day. We are going to give him a Gaviscon 1 at bedtime 5 minutes prior to retiring and 1 p.c. breakfast with holding all other adjunctive intakes. Thank you very much indeed. [place], [place] OPERATIVE NOTE NAME: CATHY MCCORD UNIT #: [id number] ROOM: DOCTOR: ARCENIO MENG MD BIRTHDATE: [birth year] ARCENIO MENG MD CM:OPRECORD:OPERATIVE NOTE [id number] 1540 ARCENIO MENG MD 03/25/19 1537 interface
--- NOTE | ~2019-03-25 | O ---
[place], [place] OPERATIVE NOTE NAME: CATHY MCCORD UNIT #: [id number] ROOM: DOCTOR: ARCENIO MENG MD BIRTHDATE: [birth year] DOS: The patient has presented with chief complaint of nonspecific abdominal pain, undergoing investigation. ALLERGIES: No known medication. FAMILY HISTORY: Noncontributory. PAST SURGICAL HISTORY: Obesity, diabetes mellitus, hyperlipidemia, fibromyalgia. SOCIAL HISTORY: Nonsmoker, nonalcohol consumer. Today's procedure part of investigation is colonoscopy. PREMEDICATION: Propofol. SCOPE: Olympus forward-viewing colonoscope 10L video. DESCRIPTION OF PROCEDURE: After putting the patient in left lateral position and application of lubricant to the scope, the scope was introduced. Thereafter, under direct visualization, advanced through the length of colon without difficulty. Up to splenic flexure visualizable sessile polypoid lesion in sigmoid colon was removed beyond this area that I advanced beyond transverse to ascending colon. The thickness of retained stool becomes more eminent and visualization becomes more difficult. Photographic series from mid ascending colon was obtained. The patient extubated, tolerated the procedure well. IMPRESSION: Sessile colonic polyp, sigmoid colon. Retained stool, otherwise. PLAN AND DISCUSSION: I am going to suggest to the patient to return in future for another complete colonoscopy after 2 days of colonic prep, I seriously doubt if he is going to be compliant; however, we are going to extend our offer. Thank you very much indeed for your kind referral. [place], [place] OPERATIVE NOTE NAME: CATHY MCCORD UNIT #: [id number] ROOM: DOCTOR: ARCENIO MENG MD BIRTHDATE: [birth year] ARCENIO MENG MD CM:OPRECORD:OPERATIVE NOTE 1255 1544 ARCENIO MENG MD 03/25/19 1542 interface
[2019-03-25 12:49] VITALS: BP 118/85
[2019-03-25 13:04] VITALS: BP 119/80
[2019-03-25 13:19] VITALS: BP 134/84
== END | disposition home or self-care (01) ==
LOC: SDC 03-22 12:30
DX: K63.5 Polyp of colon (principal); K29.50 Unspecified chronic gastritis without bleeding; E11.9 Type 2 diabetes mellitus without complications; E78.5 Hyperlipidemia, unspecified; I10 Essential (primary) hypertension; F41.9 Anxiety disorder, unspecified; F32.9 Major depressive disorder, single episode, unspecified; E66.01 Morbid (severe) obesity due to excess calories; Z68.41 Body mass index [BMI] 40.0-44.9, adult; Z98.890 Other specified postprocedural states; Z86.010 Personal history of colon polyps; Z79.899 Other long term (current) drug therapy; Z88.8 Allergy status to other drugs, medicaments and biological substances

== ENCOUNTER 2019-06-27 12:22 | Emergency (ER) | payer MEDICARE ==
[~2019-06-27] VITALS: Wt 136.1 kg
== END 2019-06-27 15:18 | disposition home or self-care (01) ==
LOC: ED 12:22
DX: M79.661 Pain in right lower leg (principal); H92.03 Otalgia, bilateral; G89.29 Other chronic pain; K21.9 Gastro-esophageal reflux disease without esophagitis; E78.00 Pure hypercholesterolemia, unspecified; E66.9 Obesity, unspecified; M79.7 Fibromyalgia; I10 Essential (primary) hypertension; G35 Multiple sclerosis; Z68.30 Body mass index [BMI] 30.0-30.9, adult; Z88.8 Allergy status to other drugs, medicaments and biological substances; Z79.899 Other long term (current) drug therapy

== ENCOUNTER 2020-03-12 03:15 | Emergency (ER) | payer MEDICARE ==
[~2020-03-12] VITALS: Ht 177.8 cm; Wt 146.2 kg
[2020-03-12 03:52] LABS: BILIRUBIN NEGATIVE; BLOOD NEGATIVE (NEGATIVE); CLARITY CLEAR (CLEAR); COLOR YELLOW (YELLOW); GLUCOSE NEGATIVE; KETONE NEGATIVE; LEUKO ESTERASE NEGATIVE (NEGATIVE); NITRITE NEGATIVE (NEGATIVE); UROBILINOGEN 0.2 E.U./dl (0.0-1.0)
[2020-03-12 04:03] LABS: BACTERIA TRACE; EPITHELIAL CELLS 0-2
[2020-03-12 04:53] LABS: ALBUMIN 3.4 gm/dl (3.1-4.5); ALKALINE PHOSPHATASE 104 U/L (45-117); BUN 13 mg/dl (7-24); CHLORIDE 110 mmol/L (98-107); CREATININE 0.92 mg/dL (0.70-1.30); POTASSIUM 3.6 mmol/L (3.5-5.1); SGOT/AST 16 IU/L (3-35); SGPT/ALT 24 U/L (12-78); SODIUM 142 mmol/L (136-145)
[2020-03-12 04:55] LABS: URINE AMPHETAMINES < 1000 (1000ng/ml); URINE BARBITURATES < 200 (200ng/ml); URINE CANNABINOIDS (THC) < 50 (50ng/ml); URINE COCAINE < 300 (300ng/ml); URINE METHADONE < 300 (300ng/ml); URINE OPIATES < 300 (300ng/ml)
[2020-03-12 05:00] LABS: URINE BENZODIAZEPINES < 200 (200ng/ml)
[2020-03-12 05:03] LABS: URINE PHENCYCLIDINE < 25 (25ng/ml)
[2020-03-12 10:37] LABS: BASO % 0.6 % (0.0-1.0); EOS # 0.1 10*3/uL (0.0-0.4); EOS % 0.8 % (1.0-4.0); HEMATOCRIT 44.8 % (42.0-52.0); LYMPH # 2.1 10*3/uL (1.3-4.4); LYMPH % 32.6 % (27.0-41.0); MEAN CELL VOLUME 93.5 fl (80.0-94.0); MEAN CORPUSCULAR HGB 31.3 pg (27.0-31.0); MEAN CORPUSCULAR HGB CONC 33.5 g/dl (33.0-37.0); MEAN PLATELET VOLUME 10.5 fl (9.6-12.3); MONO # 0.6 10*3/uL (0.1-1.0); MONO % 9.7 % (3.0-9.0); NEUT # 3.5 10*3/uL (2.3-7.9); NEUT % 56.1 % (47.0-73.0); PLATELET COUNT AUTOMATED 186 10*3/uL (130-400); RED BLOOD COUNT 4.79 10*6/uL (4.50-5.90); RED CELL DISTRI WIDTH 12.9 % (0-14.5); WHITE BLOOD COUNT 6.3 10*3/uL (4.8-10.8)
== END 2020-03-12 18:11 | disposition home health service (06) ==
LOC: ED 03:15
PROVIDERS: Emergency Medicine
DX: F29 Unspecified psychosis not due to a substance or known physiological condition (principal); E78.00 Pure hypercholesterolemia, unspecified; I10 Essential (primary) hypertension; F41.9 Anxiety disorder, unspecified; F32.9 Major depressive disorder, single episode, unspecified; K21.9 Gastro-esophageal reflux disease without esophagitis; Z88.8 Allergy status to other drugs, medicaments and biological substances; Z79.899 Other long term (current) drug therapy

== ENCOUNTER 2020-04-14 10:25 | Inpatient (IN) | payer MEDICARE ==
[~2020-04-14] VITALS: Ht 177.8 cm; Wt 144.9 kg
[2020-04-14 10:28] VITALS: BP 134/68
--- NOTE | 2020-04-14 11:40 | NUR ---
EVELYN ANN HAS BEEN CONSULTED AND WILL BE IN SOON, PER DR VÁSQUEZ.
--- NOTE | 2020-04-14 12:54 | NUR ---
EVELYN ANN HERE TO EVALUATE PT, STATES THIS IS HIS BASELINE MENTAL STATE AND THAT MANY PROVIDERS CONFUSE HIS CHRONIC APHASIA FOR MENTAL INCOMPETANCE BUT THAT PT IS MENTALLY COMPETENT. IN ADDITION, SINCE A PT CAN'T BE PINK SLIPPED FOR A MEDICAL CONDITION OR TO TREAT A MEDICAL CONDITION IF THEY DO NOT WANT THE CONDITION TREATED, THE PINK SLIP IS INVALIDATED. EVELYN STATES SHE SPOKE WITH DR FRITZ WHOSE INTENTION IS TO ADMIT PT MEDICALLY BUT THE PATIENT WAS AGAINST THIS AND DID DESIRE TO GO HOME....BUT AFTER SPEAKING WITH EVELYN FURTHER HE DOES NOT AGREE TO BE ADMITTED HE WOULD LIKE TO FIND ADDITION OR ALTERNATE PLACEMENT IN A CARE FACILITY A HARMONIC ANALYST GOAL HIMSELF. SO, MY UNDERSTANDING IS THAT PT WILL BE MEDICALLY ADMITTED VOLUNTARILY.
--- NOTE | 2020-04-14 13:05 | NUR ---
NURSE REPORT TO RENEE PAULA, FOR CONTUATION OF CARE.
--- NOTE | 2020-04-14 13:10 | NUR ---
PSYCHIATRIC ASSESSMENT: met with client to assess for needs, he was admitted to the medical floor and then was deemed incompetent and then he eloped. he was going to his apt, but then was brought back from there to the er, pink slipped by dr jones, due to not being safe because he cant care for his basic needs. client is known to me from an er visit in mar at which time he was psychotic, having paranoia, i sent him to [facility], he tells me that he does have aphasia which makes it harder for him to communicate, today he is A&ox3, he denies suicidal ideation, he has no psyhosis today , he is mildly confused at times and he does have some memory impairment. he would not meet criteria to go to an inpatient psychiatric unit. i did read through his chart and it seems that they are trying to get him a guardian and possibly assisted living. client is pleasant, he is upset about being here, i did talk with the admitting doctor and they want to readmit him, i spoke with the nursing small appliance assembly supervisor prior to that to try to see what the plan was, after talking to the doctor and dr mckeon and his nurse, i spoke with client again and explained the plan, he agreed to be readmitted so that he can get possible better housing.
--- NOTE | 2020-04-14 17:03 | NUR ---
Time: 1702 A 59 year old M admitted to 5E under services of NOREEN CATALAN DO. Pt. arrived via wheel chair from ER. Chief complaint: UNABLE TO CARE FOR SELF. NAIMA MEJIA
--- NOTE | 2020-04-14 17:20 | NUR ---
ATTEMPTED TO CALL DR. ONEILL REGARDING CONSULT. AWAITING CALL BACK.
--- NOTE | 2020-04-14 17:22 | NUR ---
NINO CONSULT COMPLETE. WILL SEE PATIENT ON THURSDAY.
--- NOTE | 2020-04-14 17:48 | NUR ---
PT DENIES WOUNDS.
--- NOTE | 2020-04-14 17:57 | NUR ---
IV started right antecubital with #22 angiocath. The IV site was prepped with Chloraprep. Heparin lock attached. Sterile dressing applied. Patient tolerated precedure well. Procedure performed according to [facility] policy & procedure. NAIMA MEJIA
[2020-04-14 18:06] VITALS: BP 126/75
--- NOTE | 2020-04-14 18:06 | NUR ---
A 59, admitted to 5E, under the services of NOREEN Hernandez DO with a diagnosis of INABILITY TO CARE FOR SELF. Chief complaint is INABILITY TO CARE FOR SELF. Patient arrived via wheel chair from ER. Monitor applied. Initial assessment completed. Vital signs taken and recorded. NOREEN HERNANDEZ DO notified of admission to the unit. Orders received. See assessment for past medical history, medications and allergies. Patient and/or family oriented to unit. [facility] visitation policy reviewed. Clothing/patient valuable form completed. JARETT LUNDBERG
[2020-04-14 18:14] VITALS: BP 126/75
[2020-04-14 20:00] VITALS: BP 101/53
[2020-04-15] VITALS: BP 91/42
[2020-04-15 06:00] LABS: BUN 12 mg/dl (7-24); CHLORIDE 111 mmol/L (98-107); CREATININE 0.74 mg/dL (0.70-1.30); POTASSIUM 4.1 mmol/L (3.5-5.1); SODIUM 143 mmol/L (136-145)
[2020-04-15 06:06] LABS: BASO % 0.4 % (0.0-1.0); EOS # 0.1 10*3/uL (0.0-0.4); EOS % 0.7 % (1.0-4.0); LYMPH # 2.4 10*3/uL (1.3-4.4); LYMPH % 34.8 % (27.0-41.0); MEAN CELL VOLUME 95.2 fl (80.0-94.0); MEAN CORPUSCULAR HGB 31.4 pg (27.0-31.0); MEAN PLATELET VOLUME 10.4 fl (9.6-12.3); MONO # 0.6 10*3/uL (0.1-1.0); MONO % 9.1 % (3.0-9.0); NEUT # 3.7 10*3/uL (2.3-7.9); NEUT % 54.7 % (47.0-73.0); PLATELET COUNT AUTOMATED 177 10*3/uL (130-400); RED CELL DISTRI WIDTH 13.2 % (0-14.5); WHITE BLOOD COUNT 6.8 10*3/uL (4.8-10.8)
[2020-04-15 08:00] VITALS: BP 100/63
[2020-04-15 12:00] VITALS: BP 90/49
[2020-04-15 16:00] VITALS: BP 128/76
--- NOTE | 2020-04-15 16:02 | NUR ---
PT C/O OF CONSTIPATION, ABD PAIN AND NAUSEA, PRN STOOL SOFTNER, ZOFRAN AND TYLENOL GIVEN, NOTIFIED OF ABSENT BOWEL SOUNDS
[2020-04-15 20:00] VITALS: BP 98/55
[2020-04-16] VITALS: BP 98/63
--- NOTE | 2020-04-16 04:52 | NUR ---
MEDICATED WITH ZOFRAN FOR COMPLAINTS OF GI UPSET. WILL MONITOR FOR EFFECTIVENESS. CALL LIGHT IN REACH.
--- NOTE | 2020-04-16 05:48 | NUR ---
BI EFFECTIVE. PATIENT SITTING IN RECLINER AT THIS TIME. DENIES COMPLAINTS OF PAIN OR DISCOMFORT.
[2020-04-16 08:00] VITALS: BP 126/81
--- NOTE | 2020-04-16 11:00 | NUR ---
PATIENT SITTING UP IN CHAIR STARING INTO HALLWAY. NO STATED COMPLAINTS. DENIES PAIN. RESPIRATIONS ARE EASY AND REGULAR ON ROOM AIR. PT REPOSITIONS SELF AND IS ENCOURAGED TO DO SO. CHAIR IN LOCKED POSITION AND CALL LIGHT WUEBONIN SIGHT. WILL CONTINUE TO MONITOR.
--- NOTE | 2020-04-16 11:12 | NUR ---
PT STATES HE IS CONSTIPATED AND HAS NOT MOVED HIS BOWELS IN A WEEK. PRN DULCOLAX ADMINSITERED AT THIS TIME. WILL MONITOR.
[2020-04-16 12:00] VITALS: BP 112/73
--- NOTE | 2020-04-16 12:39 | NUR ---
ASHOK RECEIVED CALL FROM OLU WARREN. SHE ASKED FOR UPDATES ON THE PATIENT. VERIFYING MACHINE OPERATOR PROVIDED HER AN UPDATE WITH THE EVENTS FROM THE WEEKEND. VERIFYING MACHINE OPERATOR REACHED OUT TO TERESSA DUNAWAY AND LEFT MESSAGE FOR RETURN CALL.
--- NOTE | 2020-04-16 14:05 | NUR ---
Occupational Therapy evaluation completed on 5 with full eval to follow. Precautions include impaired cognition, dementia,impaired sequencing and safety to live alone, low complexity level 41472. Recommend SNF or RESIDENTIAL to determine best ability to function. Thank you for this referral. Valentina Perdue OTR/L
--- NOTE | 2020-04-16 14:05 | NUR ---
Assistant Corporate Secretary in to talk to patient. Patient states lives at HOME with ALONE. There are NO steps in the home. Physician: Jason MOSER Pharmacy: [facility] Home health services: NONE Patient's level of ADLs: MODERATE ASSIST Patient has working utilities: YES DME: NONE Follow-up physician's appointment after d/c: WILL BE MADE BY HOSPITALIST NURSE DIRECTOR ON DISCHARGE Does patient want to access PORTAL?: N Discharge plan PT LIVES AT HOME ALONE. PT HAS BEEN DEEMED IMCOMPETENT TO MAKE MEDICAL DECISIONS. GUARDIANSHIP IS BEING WORKED ON. WILL CONTINUE TO FOLLOW. DISCHARGE PLANS ARE PENDING AT THIS TIME.. ROHIT MORALES
--- NOTE | 2020-04-16 15:02 | NUR ---
DR. KITCHEN NOTIFIED THAT PATIENT IS GETTINF AGITATED. PT STATES "EVERYONE THINKS I AM STUPID" PT ALSO HITTING HIMSELF IN THE HEAD. NO NEW ORDERS AT THIS TIME.
--- NOTE | 2020-04-16 15:16 | NUR ---
CONSUMER MARKETING ANALYST REACHED OUT TO GUME SHE STATED SHE SPOKE WITH JV SHEN. SHE WAS ADVISED TO FIND A GUARDIAN BECAUSE THERE IS A SHORTAGE IN [facility]. CONSUMER MARKETING ANALYST EXPLAINED THAT THIS CONSUMER MARKETING ANALYST COULD REACH OUT TO ABHISHEK RM [phone] TO SEE IF SHE WOULD BE WILLING TO TAKE ON THIS GUARDIANSHIP. CONSUMER MARKETING ANALYST CONTACTED ABHISHEK RM [phone] TO SEE IF SHE WOULD BE WILLING TO TAKE ON GUARDIANSHIP. ABHISHEK STATED SHE WOULD DO SO. SHE ASKED WHAT WAS TRANSPIRING WITH THIS PATIENT THAT RESULTED IN THE NEED FOR GUARDIANSHIP. CONSUMER MARKETING ANALYST EXPLAINED BREIFLY. SHE GAVE PERMISSION FOR GUME FARLEYSCAMMON TO REACH OUT TO HER. CONSUMER MARKETING ANALYST CONTACTED GUME TADEOMT BACK AND EXPLAINED ABHISHEK STATED SHE WOULD BE WILLING TO TAKE GUARDIANSHIP. SHE STATED THAT SHE WOULD REACH OUT TO ABHISHEK AND SEE WHAT ELSE WOULD NEED TO BE DONE TO ESTABLISH GUARDIANSHIP.
--- NOTE | 2020-04-16 15:41 | NUR ---
PHYSICAL THERAPY Physical Therapy evaluation completed on 5th floor with full evaluation to follow. Recommend physical therapy per plan of care and SNF pending progress with activity to further assess overall functional mobility/safety with current medical/cognitive issues upon discharge. Thank you for this referral. Felicia Weiner PT
[2020-04-16 16:00] VITALS: BP 118/80
--- NOTE | 2020-04-16 16:02 | NUR ---
DR. KITCHEN NOTIFIED OF PATIENT BEING AGITATED, SLAMMING SHOES ON GROUND AND HITTING HIMSELF IN THE HEAD. NO NEW ORDERS.
--- NOTE | 2020-04-16 18:26 | NUR ---
DR. KITCHEN NOTIFIED OF PATIENT'S BEHAVIOR. PT IS AGITATED, PACING WIH GARBLED SPEECH. PT IS TALKING NONSENE AND DOES NOT UNDERSTAND WHY HE IS HERE. NO NEW ORDERS.
--- NOTE | 2020-04-16 21:30 | NUR ---
24 HR chart check completed.
--- NOTE | 2020-04-16 22:00 | NUR ---
SLEEPING. NO ACUTE DISTRESS NOTED. RESPIRATIONS EASY. LUNGS DIMINISHED, CLEAR. PULSE OX 97% RA. TRACE BLE EDEMA. CALL LIGHT WITHIN REACH. NO VOICED COMPLAINTS
--- NOTE | 2020-04-16 22:53 | NUR ---
MEDICATED WITH RESTORIL PER PRN ORDER TO ASSIST WITH SLEEP. WILL MONITOR
--- NOTE | 2020-04-16 23:40 | NUR ---
MEDS EFFECTIVE, SLEEPING. RESPIRATIONS EASY. VSS. CALL LIGHT WITHIN REACH
[2020-04-17] VITALS: BP 103/56
--- NOTE | 2020-04-17 06:00 | NUR ---
SLEPT THROUGHOUT NIGHT WITH NO DISTRESS NOTED. RESPIRATIONS EASY. CALL LIGHT WITHIN REACH. NO VOICED COMPLAINTS THIS SHIFT
--- NOTE | 2020-04-17 07:50 | NUR ---
Patient resting quietly with no c/o discomfort. Respirations easy and regular. Vital signs stable. No overt distress. CHARLES URIBE
[2020-04-17 08:00] VITALS: BP 114/63
--- NOTE | 2020-04-17 08:01 | NUR ---
24 HR chart check completed.
--- NOTE | 2020-04-17 08:15 | NUR ---
OT NOTE Attempted to see pt this A.M. for OT session and upon arrival pt was supine in bed. Pt would not answer any questions, respond to any verbal stimuli, and would not make eye contact. Will check back at a later time and continue with POC as able. ALEX Cross
--- NOTE | 2020-04-17 09:04 | NUR ---
OT NOTE Second attempt made to see pt this A.M. for OT session and upon arrival pt was supine in bed with nurse present. Pt refused any treatment/activity requested of him stating "no, no,no". Pt continued to present with little to no eye contact towards therapist. Will check back at a later time and continue with POC as able. AMY Cross/Tommie
--- NOTE | 2020-04-17 09:15 | NUR ---
PT' S AFFECT VERY FLAT, SOME QUESTIONS WILL NOT ANSWER. HE IS REFUSING PT, TO EAT, TO TAKE MEDICATIONS. RN ASSURED PT SHE WILL CHECK IN ON HIM LATER.
--- NOTE | 2020-04-17 10:27 | NUR ---
PHYSICAL THERAPY Patient was approached twice for therapy session at 08:16 AM and 09:23 AM and both times the patient would not acknowledge therapists. Patient ignored therapist and would not answer questions. Patient does seem depressed. Nursing is aware of situation. Will check back with patient later. DARCI GONZALES TICKET SELLER
--- NOTE | 2020-04-17 11:10 | NUR ---
SLOT FLOOR ATTENDANT LEFT MESSAGE FOR GUME DELEON ASKING FOR A RETURN CALL.
--- NOTE | 2020-04-17 11:30 | NUR ---
SWAGER OPERATOR RECEIVED RETURN CALL FROM GUME. SHE IS WAITING TO HEAR BACK FROM JV SHEN.
[2020-04-17 12:00] VITALS: BP 113/73
--- NOTE | 2020-04-17 12:36 | NUR ---
OT NOTE Third attempt made to see pt this P.M. for OT session and upon arrival pt was sitting upright in the recliner. Pt continued to refuse treatment stating "no, I can run these halls. I don't need you." Attempted to educate pt on importance and reasoning for therapy and pt continued to refuse. Will check back at a later time/date and continue with POC as able. AMY Cross/Tommie
--- NOTE | 2020-04-17 13:00 | NUR ---
PT IS WORRIED ABOUT GETTING HIS MS MEDICATION. RN CHECKED WITH PHARMACY AND IT IS NOT STOCKED HERE.
--- NOTE | 2020-04-17 13:45 | NUR ---
AIRPORT SCREENER SEEN THIS PATIENT AT BEDSIDE. PATIENTS THOUGHT PROCESS WAS VERY DISTORTED AND HARD TO FOLLOW. PATIENTS DEMEANOR APPEARED TO BE DEPRESSED. PATIENT ATTEMPTED TO EXPLAIN THE EVENTS THAT BROUGHT HIM TO THIS FACILITY BUT HE WAS NOT ABLE TO ARTICULATE WHAT HAPPENED. AIRPORT SCREENER EXPLAINED THAT THIS AIRPORT SCREENER WAS WORKING WITH HIS [facility] TO ESTABLISH A GUARDIAN. PATIENT DID NOT SEE TO UNDERSTAND. AIRPORT SCREENER ATTEMPTED TO EXPLAIN IT AGAIN TO HIM. PATIENT STATED THAT HE FELT IF HE WAS BEING "LOCKED IN A CAGE". AIRPORT SCREENER ATTEMPTED TO EXPLAIN IT WOULD ONLY BE FOR A FEW MORE DAYS. PATIENT STATED HE IS "PISSED" AT HIS [facility], BUT THE PATIENT WAS UNABLE TO EXPLAIN WHY HE WAS UPSET WITH HER. AIRPORT SCREENER ASKED IF THE PATIENT WOULD LIKE TO ORDER LUNCH, SNACKS (ICE CREAM, MARGRET CRACKERS, SALTINE CRACKERS, OR POPCORN) PATIENT DECLINED. AIRPORT SCREENER ASKED IF HE WOULD LIKE SOME JUICE OR LORENA BABITA. PATIENT STATED HE WOULD LIKE LORENA BABITA. AIRPORT SCREENER ASKED IF HE WOULD BE WILLING TO TAKE HIS MEDICATION FROM HIS RN CHARLES. PATIENT ASKED WHY I ASKED. AIRPORT SCREENER EXPLAINED THIS AIRPORT SCREENER WAS NOTIFIED OF THE HIM NOT TAKING HIS MEDICATION. PATIENT ASKED WHAT HIS MEDICATION WAS FOR, AIRPORT SCREENER EXPLAINED THAT HIS RN COULD EXPLAIN THE MEDICATION TO HIM. AIRPORT SCREENER OFFERED THIS PATIENT A NEWSPAPER, TURNING TV ON, PUZZLE, COLORING BOOK, OR CROSSWORD PUZZLE. PATIENT REFUSED. AIRPORT SCREENER ASKED IF THIS AIRPORT SCREENER COULD DO ANYTHING FOR HIM AT THIS TIME. PATIENT STATED "NO". AIRPORT SCREENER TO FOLLOW.
[2020-04-17] MEDS ORDERED: GLATOPA40 MG/1 ML SQ (13:51)
[2020-04-17 16:00] VITALS: BP 107/69
--- NOTE | 2020-04-17 16:00 | NUR ---
Patient resting quietly with no c/o discomfort. Respirations easy and regular. Vital signs stable. No overt distress. CHARLES URIBE
--- NOTE | 2020-04-17 18:22 | NUR ---
PT REFUSED TO EAT ANY LUNCH OR DRINK ANYTHING FOR LUNCH. HE ALSO REFUSED TO OREDER ANYTHING FOR DINNER OR HAVE ANYTHING TO DRINK FOR DINNER OR ANYTIME IN BETWEEN.
--- NOTE | 2020-04-17 19:30 | NUR ---
PATIENT CALLED THIS RN TO THE ROOM AND STATED HE THINKS HIS IV IS OUT. IV FLUSHES WELL WITH BLOOD RETURN. PATIENT VISIBLY UPSET ABOUT THIS, AND STATES THAT IT HAS BEEN IN THERE FOR A LONG TIME AND NEEDS TO COME OUT. TUBIGRIP PLACED OVER IV SO PATIENT DOES NOT HAVE TO LOOK AT IT. PATIENT STATES "THIS IS NOT HELPING ME, BUT WHATEVER." THIS RN OFFERED PATIENT SNACKS AND DRINKS, HE DECLINES. PATIENT ALSO DECLINES TO WATCH TV. BED IN LOWEST POSITION, CALL LIGHT IN REACH
[2020-04-17 20:00] VITALS: BP 113/69
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
--- NOTE | 2020-04-17 21:36 | NUR ---
PATIENT PACING FROM BED TO DOORWAY IN HALLWAY. WHEN ASKED IF THIS RN CAN GET HIM ANYTHING, OR IF SOMETHING IS WRONG, PATIENT DOES NOT RESPOND
--- NOTE | 2020-04-17 21:49 | NUR ---
PATIENT REFUSING IV ATIVAN AT THIS TIME
--- NOTE | 2020-04-17 22:53 | NUR ---
PATIENT RESTING IN BED WITH EYES CLOSED. RESPS EASY AND REGULAR. NO S/S OF DISTRESS.
[2020-04-18] VITALS: BP 96/69
--- NOTE | 2020-04-18 00:27 | NUR ---
24 HR chart check completed.
--- NOTE | 2020-04-18 01:21 | NUR ---
patient resting in bed with no s/s of distress. resps easy and regular. bed in lowest position, call light in reach
--- NOTE | 2020-04-18 03:53 | NUR ---
PATIENT RESTING IN BED WITH EYES OPEN. DENIES NEEDS. BED IN LOWEST POSITION, CALL LIGHT IN REACH
--- NOTE | 2020-04-18 04:44 | NUR ---
PATIENT SITTING IN CHAIR LOOKING INTO HALLWAY. DENIES ANY NEEDS AT THIS TIME.
[2020-04-18 08:00] VITALS: BP 105/59
--- NOTE | 2020-04-18 08:03 | NUR ---
MEDICATED WITH IV ZOFRAN FOR C/O NAUSEA/STOMACH "BURNING". PT IS CALM AND MORE OPEN THIS AM. HE IS WILLING TO TAKE PO MEDS, DRINK LORENA BABITA AND HAVE A LIGHT BREAKFAST.
--- NOTE | 2020-04-18 09:00 | NUR ---
MEDICATION EFFECTIVE FOR NAUSEA.
--- NOTE | 2020-04-18 11:00 | NUR ---
DR KITCHEN MADE AWARE THAT PT'S PINK SLIP NEEDS RENEWED BY END OF TODAY.
[2020-04-18 12:00] VITALS: BP 115/75
--- NOTE | 2020-04-18 12:00 | NUR ---
Patient resting quietly with no c/o discomfort. Respirations easy and regular. Vital signs stable. No overt distress. CHARLES URIBE
--- NOTE | 2020-04-18 12:00 | NUR ---
Patient resting quietly with no c/o discomfort. Respirations easy and regular. Vital signs stable. No overt distress. CHARLES URIBE
--- NOTE | 2020-04-18 13:00 | NUR ---
PHYSICAL THERAPY Patient seen this pm 1;1 for therapy visit and was sitting up in bedside chair upon therapist arrival. Patient identified by name / and reports no new c/o's at this time, however was very talkative. Patient seemed to jump between several talking points this afternoon which made it hard to follow conversation at times. Patient transfers sit to stand from low chair surface, SBA and ambulates without AD, SBA, ad burke in room, demonstrating slow, steady gait pattern 50'x 1. Patient also tolerated eyes open / closed balance x 10 seconds without LOB and returned to bedside chair with only mild fatigue. Patient remained in chair with call light, tray table and telephone. Will continue per POC as tolerated, total treatment time 14 minutes. Alfredo Hernandez, SHEET CATCHER
--- NOTE | 2020-04-18 13:07 | NUR ---
OT NOTE Pt was seen this P.M. 1:1 for 17 minute OT session. Upon arrival pt was sitting upright in the recliner. Pt identified by name and and had no complaints at this time. Sit to stand completed from chair level with SBA followed by functional mobility to the bathroom with SBA and verbal prompts for slowing down due to being impulsive increasing risk of falls. Pt presented with poor carry over. There he transferred on/off standard commode with SBA. He then stood sink side while washing his hands with Melanie for assist with sequencing of task. Functional mobility completed back to the recliner. Challenged pt's dynamic standing balance while weight shifting, crossing midline, and reaching over all planes and pt was able to maintain F+/G- standing balance throughout. Pt was left sitting upright in the recliner with call light in hand, tray table in place, and phone in reach. Continue with rec D/C plan to SNF versus NURSING HOME. AMY Cross/Tommie
[2020-04-18 16:00] VITALS: BP 96/81
--- NOTE | 2020-04-18 16:00 | NUR ---
Patient resting quietly with no c/o discomfort. Respirations easy and regular. Vital signs stable. No overt distress. CHARLES URIBE
--- NOTE | 2020-04-18 19:32 | NUR ---
DR BENOIT NOTIFIED OF TACHYCARDIA AND NEED FOR PINK SLIP RENEWAL. NEW ORDERS RECEIVED.
[2020-04-18 20:00] VITALS: BP 110/73
[2020-04-19] VITALS: BP 113/90
[2020-04-19 06:26] LABS: BASO % 0.7 % (0.0-1.0); EOS # 0.1 10*3/uL (0.0-0.4); EOS % 1.4 % (1.0-4.0); HEMATOCRIT 39.7 % (42.0-52.0); LYMPH # 2.1 10*3/uL (1.3-4.4); LYMPH % 35.3 % (27.0-41.0); MEAN CORPUSCULAR HGB 31.6 pg (27.0-31.0); MEAN CORPUSCULAR HGB CONC 33.2 g/dl (33.0-37.0); MEAN PLATELET VOLUME 10.4 fl (9.6-12.3); MONO # 0.5 10*3/uL (0.1-1.0); MONO % 9.2 % (3.0-9.0); NEUT # 3.1 10*3/uL (2.3-7.9); NEUT % 53.1 % (47.0-73.0); PLATELET COUNT AUTOMATED 174 10*3/uL (130-400); RED BLOOD COUNT 4.18 10*6/uL (4.50-5.90); WHITE BLOOD COUNT 5.9 10*3/uL (4.8-10.8)
[2020-04-19 06:48] LABS: CHLORIDE 108 mmol/L (98-107); POTASSIUM 4.1 mmol/L (3.5-5.1); SODIUM 142 mmol/L (136-145)
[2020-04-19 06:52] LABS: BUN 12 mg/dl (7-24); CREATININE 0.83 mg/dL (0.70-1.30)
[2020-04-19 08:00] VITALS: BP 132/89
--- NOTE | 2020-04-19 10:00 | NUR ---
PT SITTING UP AT SIDE OF BED. PT HAS SOME EXPRESSIVE APHASIA, GETS UPSET CAUSE UNABLE TO VOICE WHAT HE NEEDS AT TIMES. CALL LIGHT IN REACH. TOLERATED ROUTINE MEDICATIONS. SEE SHIFT ASSESSMENT.
--- NOTE | 2020-04-19 10:36 | NUR ---
ROPE CLEANER REACHED OUT TO DR. ONEILL ABOUT EMERGENCY GUARDIANSHIP FORM.
--- NOTE | 2020-04-19 11:50 | NUR ---
PT IS UPSET AND STATES HE WANTS TO GO HOME. PT STATES NOONE HAS SEEN HIM TODAY. I LET HIM KNOW THEY WAS UP THIS AM. HE STATES NOONE WAS. CALLED DR. KITCHEN MADE AWARE PT IS GETTING AGITATED AND DOING REPETITIVE MOVEMENTS BY BANGING HAND ON WINDOW SEAL. TRIED TO TALK WITH PT. DOESN'T WANT ANYTHING. WILL CON'T TO MONITOR PT.
--- NOTE | 2020-04-19 11:56 | NUR ---
CALLED DR. KITCHEN AGAIN MADE AWARE ATIVAN WAS JUST ONE TIME. OK TO ORDER FOR ONE TIME DOSE. SPOKE WITH PT HE SAID NO. AND REFUSES TO HAVE ANYTHING. WILL MONITOR. RESTING IN CHAIR BY THE WINDOW. CALL LIGHT IN REACH.
[2020-04-19 12:00] VITALS: BP 122/85
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
--- NOTE | 2020-04-19 12:10 | NUR ---
DR. KITCHEN IN TO TALK WITH PT. PT SITTING UP IN RECLINER CHAIR. CALL LIGHT IN REACH.
--- NOTE | 2020-04-19 12:13 | NUR ---
PT IS UPSET SITTING ON THE FLOOR IN ROOM. SPOKE WITH PT REGARDING BEING ON THE FLOOR. HE DOESN'T ANSWER. PT REMAINS ON THE FLOOR.
--- NOTE | 2020-04-19 12:32 | NUR ---
CATERING BARISTA WORKER WORKING ON GUARDIANSHIP WITH PROCESS DEVELOPMENT ASSOCIATE.
--- NOTE | 2020-04-19 12:42 | NUR ---
PT SITTING UP IN CHAIR BY THE WINDOW AT THIS TIME. CALL LIGHT IN REACH. WILL MONITOR.
--- NOTE | 2020-04-19 13:25 | NUR ---
OT NOTE Pt was seen this P.M. 1:1 for 15 minute OT session. Upon arrival pt was sitting upright in the recliner. Pt identified by name and and had no complaints at this time stating "same old, same old." While sitting pt doffed B socks and donned shoes with supervision. Sit to stand completed from chair level with SBA followed by functional mobility to the bathroom and back with SBA with constant verbal prompts to slow down due to being impulsive increasing risk of falls. Pt had poor carry over. Challenged pt's dynamic standing balance while weight shifting, crossing midline, and reaching over all planes. Pt was able to maintain G- standing balance throughout. Pt was left sitting upright in the recliner with call light in hand, tray table in place, and phone in reach. continue with rec D/C plan to SNF versus [facility]. AMY Cross/Tommie
--- NOTE | 2020-04-19 13:25 | NUR ---
PHYSICAL THERAPY TREATMENT TIME: IN 1:19 PM - OUT 1:35 PM 16 MINUTES TOTAL 1:1 WITH THIS SAFETY GROOVING MACHINE OPERATOR PRESENTATION: Patient was in sitting in bedside chair No chair alarm on Identified by name and on wristband Informed consent for treatment PATIENT APPEARS SOMEWHAT DEPRESSED COMPLAINTS: NO COMPLAINTS WB STATUS: No wt bearing restrictions ASSISTIVE DEVICE: No Assistive device used TRANSFERS: STS <> bedside chair: SBA TREATMENT: GAIT with Close Supervision and NO ASSISTIVE DEVICE for 430' x 1 Verbal cues for patient to slow down as he was almost running at a couple of points in the gait. Patient impulsive with gait and high crystal Patient ambulated the entire 430' x 1 without resting RESPONSE TO TREATMENT: Patient tolerated gait well without LOB, SOB or need for rest. CONCLUSION: Patient left in bedside chair with call light within reach DARCI GONZALES SAFETY GROOVING MACHINE OPERATOR
--- NOTE | 2020-04-19 14:51 | NUR ---
ASHOK SPOKE WITH [facility] INFORMATION ADMINISTRATOR AND INFORMED HER THE PATIENT WOULD BE DISCHARGING TODAY. CARE MANAGEMENT SPECIALIST EXPLAINED WOULD SEND REFERRAL TO [facility], SHE UNDERSTOOD AND STATED SHE WOULD CONTACT ALWAYS [facility] TO RESUME HIS SERVICES. IF PATIENT WERE TO NEED TRANSPORTATION HIS INSURANCE WOULD PROVIDE IT. CONTACT NUMBERS ARE [phone], , , ANYONE OF THESE NUMBERS WILL WORK.
--- NOTE | 2020-04-19 15:08 | NUR ---
REFERRAL HAS BEEN FAXED TO [facility].
--- NOTE | 2020-04-19 15:19 | NUR ---
PT ATE SMALL AMOUNT OF LUNCH. HE DOESN'T WANT ANYTHING ELSE TO EAT. CALL LIGHT IN REACH.
[2020-04-19] MEDS ORDERED: PHARMASSURE V500 MCG PO (15:25)
[2020-04-19 16:00] VITALS: BP 111/46
--- NOTE | 2020-04-19 16:20 | NUR ---
Discharge instructions reviewed with patient. Patient receptive and verbalizes understanding. Follow-up care arranged. Written instructions given to patient. HEPLOCK REMOVED 2X2 APPLIED. MONITOR REMOVED. PT AMBULATORY OFF THE FLOOR PER HIS REQUEST. TEDDY DUNHAM
--- NOTE | 2020-04-20 07:39 | NUR ---
PHYSICAL THERAPY CO-SIGN I approve of the Physical Therapy notes written above. Felicia Weiner PT
--- NOTE | 2020-04-20 13:11 | NUR ---
[facility] IS UNABLE TO ACCEPT THIS PATIENT. DRAIN TILER FAXED REFERRAL TO [facility] THEY ARE ABLE TO ACCEPT THE PATIENT. DRAIN TILER NOTIFIED TERESSA [facility] LA [facility].
--- NOTE | 2020-04-20 17:04 | NUR ---
OCCUPATIONAL THERAPY CO-SIGN I approve of the Occupational Therapy notes written above. JACK HUBER OTR/Tommie
== END 2020-04-19 16:25 | disposition home health service (06) | DRG 59 ==
LOC: ED 10:25 → 5E 14:13 → EDHOLD 14:13 → 5E 15:57
PROVIDERS: Internal Medicine; Student in an Organized Health Care Education/Training Program; ADMIT Internal Medicine; ATTEND Internal Medicine
DX: G35 Multiple sclerosis (principal); Z68.42 Body mass index [BMI] 45.0-49.9, adult; D53.9 Nutritional anemia, unspecified; E83.41 Hypermagnesemia; E87.8 Other disorders of electrolyte and fluid balance, not elsewhere classified; N40.0 Benign prostatic hyperplasia without lower urinary tract symptoms; F32.9 Major depressive disorder, single episode, unspecified; F20.9 Schizophrenia, unspecified; K21.9 Gastro-esophageal reflux disease without esophagitis; E66.9 Obesity, unspecified; G89.4 Chronic pain syndrome; R41.9 Unspecified symptoms and signs involving cognitive functions and awareness; Z78.9 Other specified health status; Z88.8 Allergy status to other drugs, medicaments and biological substances

== ENCOUNTER 2020-05-20 14:59 | Emergency (ER) | payer MEDICARE ==
[~2020-05-20] VITALS: Ht 177.8 cm; Wt 136.1 kg
[~2020-05-20 14:59] MED LIST changes: +GLATOPA40 MG/1 ML SQ; +PHARMASSURE V500 MCG PO
[2020-05-20 15:44] LABS: BASO % 0.3 % (0.0-1.0); EOS # 0.1 10*3/uL (0.0-0.4); EOS % 1.6 % (1.0-4.0); HEMATOCRIT 44.2 % (42.0-52.0); LYMPH # 1.9 10*3/uL (1.3-4.4); LYMPH % 30.9 % (27.0-41.0); MEAN CELL VOLUME 93.1 fl (80.0-94.0); MEAN CORPUSCULAR HGB 30.9 pg (27.0-31.0); MEAN CORPUSCULAR HGB CONC 33.3 g/dl (33.0-37.0); MEAN PLATELET VOLUME 10.6 fl (9.6-12.3); MONO # 0.5 10*3/uL (0.1-1.0); MONO % 8.6 % (3.0-9.0); NEUT # 3.6 10*3/uL (2.3-7.9); NEUT % 58.4 % (47.0-73.0); PLATELET COUNT AUTOMATED 168 10*3/uL (130-400); RED BLOOD COUNT 4.75 10*6/uL (4.50-5.90); RED CELL DISTRI WIDTH 12.7 % (0-14.5); WHITE BLOOD COUNT 6.1 10*3/uL (4.8-10.8)
[2020-05-20 15:55] LABS: ACT PARTIAL THROMBO TIME 26.2 SECONDS (20.0-32.1)
[2020-05-20 16:00] LABS: ALBUMIN 3.4 gm/dl (3.1-4.5); ALKALINE PHOSPHATASE 100 U/L (45-117); BUN 8 mg/dl (7-24); CHLORIDE 108 mmol/L (98-107); CREATININE 0.87 mg/dL (0.70-1.30); LIPASE 109 U/L (73-393); POTASSIUM 3.5 mmol/L (3.5-5.1); SGOT/AST 20 IU/L (3-35); SGPT/ALT 28 U/L (12-78); SODIUM 139 mmol/L (136-145); TOTAL PROTEIN 7.2 gm/dL (6.4-8.2)
[2020-05-20 16:12] LABS: TROPONIN I < 0.015 ng/ml (<0.045)
[2020-05-20 18:18] LABS: BILIRUBIN Negative (Negative); BLOOD Negative (Negative); CLARITY Clear (Clear); COLOR Yellow (Yellow); GLUCOSE Negative (Negative); KETONE Negative (Negative); LEUKO ESTERASE Negative (Negative); NITRITE Negative (Negative); SPECIFIC GRAVITY <= 1.005 (1.001-1.030); UROBILINOGEN 0.2 E.U./dl (0.0-1.0)
[2020-05-20 18:29] LABS: BACTERIA TRACE; EPITHELIAL CELLS 0-2; HYALINE CAST 0-2; RBC 0-2 rbc/hpf (0-2); WBC 0-2 wbc/hpf (0-5)
== END 2020-05-20 18:32 | disposition home or self-care (01) ==
LOC: ED 14:59
PROVIDERS: Emergency Medicine
DX: R10.13 Epigastric pain (principal); K21.9 Gastro-esophageal reflux disease without esophagitis; E66.9 Obesity, unspecified; M79.7 Fibromyalgia; Z88.8 Allergy status to other drugs, medicaments and biological substances; Z79.899 Other long term (current) drug therapy

== ENCOUNTER 2020-07-14 09:03 | Emergency (ER) | payer MEDICARE ==
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
== END 2020-07-14 09:55 | disposition home or self-care (01) ==
LOC: ED 09:03
DX: S90.512A Abrasion, left ankle, initial encounter (principal); Z79.899 Other long term (current) drug therapy; Z88.8 Allergy status to other drugs, medicaments and biological substances; W22.8XXA Striking against or struck by other objects, initial encounter; Y93.89 Activity, other specified; Y92.89 Other specified places as the place of occurrence of the external cause; Y99.8 Other external cause status

== ENCOUNTER 2020-07-17 00:59 | Emergency (ER) | payer MEDICARE ==
[~2020-07-17] VITALS: Ht 175.2 cm; Wt 141.1 kg
[2020-07-17 01:18] LABS: BASO % 0.2 % (0.0-1.0); HEMATOCRIT 43.2 % (42.0-52.0); LYMPH % 16.2 % (27.0-41.0); MEAN CELL VOLUME 93.7 fl (80.0-94.0); MEAN CORPUSCULAR HGB 30.8 pg (27.0-31.0); MEAN CORPUSCULAR HGB CONC 32.9 g/dl (33.0-37.0); MEAN PLATELET VOLUME 10.3 fl (9.6-12.3); MONO # 0.7 10*3/uL (0.1-1.0); MONO % 10.9 % (3.0-9.0); NEUT # 4.4 10*3/uL (2.3-7.9); NEUT % 72.5 % (47.0-73.0); PLATELET COUNT AUTOMATED 199 10*3/uL (130-400); RED BLOOD COUNT 4.61 10*6/uL (4.50-5.90); WHITE BLOOD COUNT 6.1 10*3/uL (4.8-10.8)
[2020-07-17 01:37] LABS: BUN 17 mg/dl (7-24); CHLORIDE 105 mmol/L (98-107); CREATININE 1.24 mg/dL (0.70-1.30); POTASSIUM 3.6 mmol/L (3.5-5.1); SODIUM 139 mmol/L (136-145)
[2020-07-17 01:38] LABS: TROPONIN I < 0.015 ng/ml (<0.045)
== END 2020-07-17 02:36 | disposition home or self-care (01) ==
LOC: ED 00:59
PROVIDERS: Internal Medicine
DX: R07.89 Other chest pain (principal); R06.02 Shortness of breath; Z88.8 Allergy status to other drugs, medicaments and biological substances; Z79.899 Other long term (current) drug therapy; Y08.89XA Assault by other specified means, initial encounter; Y93.89 Activity, other specified; Y92.89 Other specified places as the place of occurrence of the external cause; Y99.8 Other external cause status

== ENCOUNTER 2020-07-19 17:28 | Emergency (ER) | payer MEDICARE ==
[~2020-07-19] VITALS: Wt 136.1 kg
[2020-07-19 18:05] LABS: BASO % 0.5 % (0.0-1.0); EOS % 0.6 % (1.0-4.0); HEMATOCRIT 38.7 % (42.0-52.0); LYMPH # 1.5 10*3/uL (1.3-4.4); LYMPH % 23.7 % (27.0-41.0); MEAN CELL VOLUME 93.7 fl (80.0-94.0); MEAN CORPUSCULAR HGB 31.2 pg (27.0-31.0); MEAN CORPUSCULAR HGB CONC 33.3 g/dl (33.0-37.0); MEAN PLATELET VOLUME 10.2 fl (9.6-12.3); MONO # 0.7 10*3/uL (0.1-1.0); MONO % 11.6 % (3.0-9.0); NEUT # 3.9 10*3/uL (2.3-7.9); NEUT % 63.4 % (47.0-73.0); PLATELET COUNT AUTOMATED 187 10*3/uL (130-400); RED BLOOD COUNT 4.13 10*6/uL (4.50-5.90); RED CELL DISTRI WIDTH 13.2 % (0-14.5); WHITE BLOOD COUNT 6.2 10*3/uL (4.8-10.8)
[2020-07-19 18:14] LABS: URINE AMPHETAMINES < 1000 (1000ng/ml); URINE BARBITURATES < 200 (200ng/ml); URINE BENZODIAZEPINES < 200 (200ng/ml); URINE CANNABINOIDS (THC) < 50 (50ng/ml); URINE COCAINE < 300 (300ng/ml); URINE METHADONE < 300 (300ng/ml); URINE OPIATES < 300 (300ng/ml)
[2020-07-19 18:16] LABS: URINE PHENCYCLIDINE < 25 (25ng/ml)
[2020-07-19 18:22] LABS: ALBUMIN 3.7 gm/dl (3.1-4.5); BILIRUBIN Negative (Negative); BLOOD Negative (Negative); BUN 11 mg/dl (7-24); CHLORIDE 107 mmol/L (98-107); CLARITY Clear (Clear); COLOR Yellow (Yellow); CREATININE 0.85 mg/dL (0.70-1.30); GLUCOSE Negative (Negative); KETONE Trace (Negative); LEUKO ESTERASE Negative (Negative); NITRITE Negative (Negative); PH 5.5 (4.5-8.0); POTASSIUM 3.7 mmol/L (3.5-5.1); SGOT/AST 65 IU/L (3-35); SGPT/ALT 49 U/L (12-78); SODIUM 141 mmol/L (136-145)
[2020-07-19 18:23] LABS: ALKALINE PHOSPHATASE 89 U/L (45-117); CPK 762 U/L (39-308); ETHYL ALCOHOL < 3.0 mg/dl (<3)
[2020-07-19 18:45] LABS: BACTERIA TRACE; CALCIUM OXALATE CRYSTALS 1+; MUCOUS 1+; RBC 0-2 rbc/hpf (0-2)
== END 2020-07-20 07:00 | disposition home or self-care (01) ==
LOC: ED 17:28
PROVIDERS: Emergency Medicine
DX: F43.22 Adjustment disorder with anxiety (principal); K21.9 Gastro-esophageal reflux disease without esophagitis; M79.7 Fibromyalgia; R74.8 Abnormal levels of other serum enzymes; Z88.8 Allergy status to other drugs, medicaments and biological substances; Z79.899 Other long term (current) drug therapy

== ENCOUNTER 2020-07-21 05:11 | Inpatient (IN) | payer MEDICARE ==
[~2020-07-21] VITALS: Ht 175.2 cm; Wt 136.3 kg
[2020-07-21 05:22] VITALS: BP 134/84
[2020-07-21 06:00] LABS: BILIRUBIN Negative (Negative); BLOOD Negative (Negative); CLARITY Clear (Clear); COLOR Yellow (Yellow); GLUCOSE Negative (Negative); KETONE 2+ (Negative); LEUKO ESTERASE Negative (Negative); NITRITE Negative (Negative); PH 5.5 (4.5-8.0); SPECIFIC GRAVITY 1.025 (1.001-1.030)
[2020-07-21 06:08] LABS: BASO % 0.5 % (0.0-1.0); HEMATOCRIT 37.3 % (42.0-52.0); LYMPH # 1.2 10*3/uL (1.3-4.4); LYMPH % 30.2 % (27.0-41.0); MEAN CORPUSCULAR HGB 30.7 pg (27.0-31.0); MEAN PLATELET VOLUME 10.6 fl (9.6-12.3); MONO # 0.4 10*3/uL (0.1-1.0); MONO % 11.5 % (3.0-9.0); NEUT # 2.1 10*3/uL (2.3-7.9); NEUT % 55.8 % (47.0-73.0); PLATELET COUNT AUTOMATED 169 10*3/uL (130-400); RED BLOOD COUNT 4.01 10*6/uL (4.50-5.90); RED CELL DISTRI WIDTH 13.1 % (0-14.5); WHITE BLOOD COUNT 3.8 10*3/uL (4.8-10.8)
[2020-07-21 06:09] LABS: ALBUMIN 3.4 gm/dl (3.1-4.5); ALKALINE PHOSPHATASE 77 U/L (45-117); BUN 8 mg/dl (7-24); CHLORIDE 107 mmol/L (98-107); CPK 476 U/L (39-308); CREATININE 0.74 mg/dL (0.70-1.30); POTASSIUM 3.3 mmol/L (3.5-5.1); SGOT/AST 54 IU/L (3-35); SGPT/ALT 49 U/L (12-78); SODIUM 142 mmol/L (136-145); TOTAL PROTEIN 6.6 gm/dL (6.4-8.2)
[2020-07-21 06:17] LABS: URINE BENZODIAZEPINES < 200 (200ng/ml); URINE CANNABINOIDS (THC) < 50 (50ng/ml); URINE COCAINE < 300 (300ng/ml); URINE METHADONE < 300 (300ng/ml); URINE OPIATES < 300 (300ng/ml)
[2020-07-21 06:22] LABS: MUCOUS TRACE; RBC 0-2 rbc/hpf (0-2); WBC 0-2 wbc/hpf (0-5)
[2020-07-21 06:26] LABS: ACETAMINOPHEN (TYLENOL) < 5.0 ug/ml (10-30); ETHYL ALCOHOL < 3.0 mg/dl (<3)
[2020-07-21 06:36] LABS: URINE AMPHETAMINES < 1000 (1000ng/ml); URINE BARBITURATES < 200 (200ng/ml)
[2020-07-21 06:42] LABS: URINE PHENCYCLIDINE < 25 (25ng/ml)
[2020-07-21 10:45] VITALS: BP 137/84
[2020-07-21 18:03] VITALS: BP 132/81
[2020-07-21 19:59] VITALS: BP 99/51
[2020-07-22 06:10] LABS: ALBUMIN 3.3 gm/dl (3.1-4.5); ALKALINE PHOSPHATASE 78 U/L (45-117); BUN 6 mg/dl (7-24); CHLORIDE 111 mmol/L (98-107); CREATININE 0.74 mg/dL (0.70-1.30); POTASSIUM 3.7 mmol/L (3.5-5.1); SGOT/AST 40 IU/L (3-35); SGPT/ALT 44 U/L (12-78); SODIUM 144 mmol/L (136-145); TOTAL PROTEIN 6.5 gm/dL (6.4-8.2)
[2020-07-22 06:17] LABS: BASO % 0.5 % (0.0-1.0); EOS # 0.1 10*3/uL (0.0-0.4); EOS % 1.6 % (1.0-4.0); HEMATOCRIT 41.3 % (42.0-52.0); LYMPH # 1.9 10*3/uL (1.3-4.4); LYMPH % 43.8 % (27.0-41.0); MEAN CELL VOLUME 94.1 fl (80.0-94.0); MEAN CORPUSCULAR HGB 30.3 pg (27.0-31.0); MEAN CORPUSCULAR HGB CONC 32.2 g/dl (33.0-37.0); MEAN PLATELET VOLUME 10.7 fl (9.6-12.3); MONO # 0.5 10*3/uL (0.1-1.0); MONO % 10.3 % (3.0-9.0); NEUT # 1.9 10*3/uL (2.3-7.9); NEUT % 43.6 % (47.0-73.0); PLATELET COUNT AUTOMATED 170 10*3/uL (130-400); RED BLOOD COUNT 4.39 10*6/uL (4.50-5.90); RED CELL DISTRI WIDTH 13.1 % (0-14.5); WHITE BLOOD COUNT 4.4 10*3/uL (4.8-10.8)
[2020-07-22 06:46] VITALS: BP 89/55
[2020-07-22 07:13] LABS: VITAMIN D, 25-HYDROXY 41.7 ng/mL (30-100)
[2020-07-22 09:16] VITALS: BP 122/86
[2020-07-22 16:15] VITALS: BP 110/78
[2020-07-22] MEDS ORDERED: ASPIRIN ADULT L81 M2 PO (16:23)
[2020-07-22] MEDS ORDERED: TAMSULOSIN HCL0.4 MG PO (16:23)
[2020-07-22] MEDS ORDERED: VITAMIN E400 UNI3 PO (16:26)
[2020-07-22] MEDS ORDERED: VITAMIN D3125 MC1 PO (16:26)
[2020-07-22] MEDS ORDERED: OMEPRAZOLE MAGN20 MG PO (16:26)
[2020-07-22] MEDS ORDERED: VIIBRYD20 M1 PO (16:27)
[2020-07-22 20:00] VITALS: BP 108/73
[2020-07-23] VITALS: BP 117/77
[2020-07-23 06:37] LABS: BASO % 0.5 % (0.0-1.0); EOS # 0.1 10*3/uL (0.0-0.4); EOS % 2.1 % (1.0-4.0); LYMPH # 1.3 10*3/uL (1.3-4.4); LYMPH % 34.9 % (27.0-41.0); MEAN CELL VOLUME 93.8 fl (80.0-94.0); MEAN CORPUSCULAR HGB 30.8 pg (27.0-31.0); MEAN CORPUSCULAR HGB CONC 32.8 g/dl (33.0-37.0); MEAN PLATELET VOLUME 10.4 fl (9.6-12.3); MONO # 0.5 10*3/uL (0.1-1.0); MONO % 11.7 % (3.0-9.0); NEUT # 1.9 10*3/uL (2.3-7.9); NEUT % 50.3 % (47.0-73.0); PLATELET COUNT AUTOMATED 150 10*3/uL (130-400); RED BLOOD COUNT 4.16 10*6/uL (4.50-5.90); RED CELL DISTRI WIDTH 13.1 % (0-14.5); WHITE BLOOD COUNT 3.8 10*3/uL (4.8-10.8)
[2020-07-23 06:48] LABS: BUN 5 mg/dl (7-24); CHLORIDE 107 mmol/L (98-107); POTASSIUM 3.6 mmol/L (3.5-5.1); SODIUM 140 mmol/L (136-145)
[2020-07-23 08:00] VITALS: BP 106/61
[2020-07-23 12:00] VITALS: BP 90/59
[2020-07-23 16:00] VITALS: BP 118/83
[2020-07-23 20:00] VITALS: BP 130/86
[2020-07-24] VITALS: BP 109/70
[2020-07-24 00:45] VITALS: BP 113/78
[2020-07-24 08:00] VITALS: BP 79/48; BP 90/52
[2020-07-24 12:00] VITALS: BP 98/72
[2020-07-24 14:00] VITALS: BP 92/60
[2020-07-24] MEDS ORDERED: RISPERIDONE0.5 MG PO (16:02)
[2020-07-24 20:00] VITALS: BP 115/68
[2020-07-25] VITALS: BP 98/69
[2020-07-25 08:00] VITALS: BP 98/48
== END 2020-07-25 08:50 | disposition home health service (06) | DRG 641 ==
LOC: ED 05:11 → EDHOLD 08:15 → 5E 08:15
PROVIDERS: Emergency Medicine; Internal Medicine; ADMIT Student in an Organized Health Care Education/Training Program; ATTEND Student in an Organized Health Care Education/Training Program
DX: E87.6 Hypokalemia (principal); E44.0 Moderate protein-calorie malnutrition; Z68.41 Body mass index [BMI] 40.0-44.9, adult; F99 Mental disorder, not otherwise specified; F43.22 Adjustment disorder with anxiety; N40.0 Benign prostatic hyperplasia without lower urinary tract symptoms; G89.4 Chronic pain syndrome; G47.30 Sleep apnea, unspecified; G35 Multiple sclerosis; D64.9 Anemia, unspecified; K21.9 Gastro-esophageal reflux disease without esophagitis; M79.7 Fibromyalgia; E87.8 Other disorders of electrolyte and fluid balance, not elsewhere classified; R73.9 Hyperglycemia, unspecified; R74.01 Elevation of levels of liver transaminase levels; R74.8 Abnormal levels of other serum enzymes; Z91.83 Wandering in diseases classified elsewhere; F41.9 Anxiety disorder, unspecified; Z88.8 Allergy status to other drugs, medicaments and biological substances; Z79.899 Other long term (current) drug therapy; Z79.82 Long term (current) use of aspirin; R41.9 Unspecified symptoms and signs involving cognitive functions and awareness; F25.1 Schizoaffective disorder, depressive type; Z20.822 Contact with and (suspected) exposure to COVID-19